=== PATIENT | male | born 1970 | race Caucasian/White ===

== ENCOUNTER 2020-09-07 14:46 | Outpatient (REF) | payer OTHER, SELFPAY | END 2020-09-07 14:47 | disposition home or self-care (01) | LOC: HO.BBR 14:46 | PROVIDERS: PCP Internal Medicine; Visit Provider Internal Medicine Gastroenterology | DX: Z13.89 Encounter for screening for other disorder (principal) ==

== ENCOUNTER 2020-12-14 08:54 | Outpatient (REF) | payer OTHER, SELFPAY | END 2020-12-14 08:55 | disposition home or self-care (01) | LOC: HO.BBR 08:54 | PROVIDERS: PCP Internal Medicine; Visit Provider Internal Medicine Gastroenterology | DX: E83.110 Hereditary hemochromatosis (principal) | CPT/HCPCS: 85018; 99195 ==

== ENCOUNTER 2021-03-22 09:05 | Outpatient (REF) | payer OTHER, SELFPAY | END 2021-03-22 09:06 | disposition home or self-care (01) | LOC: HO.BBR 09:05 | PROVIDERS: PCP Internal Medicine; Visit Provider Internal Medicine Gastroenterology | DX: Z13.89 Encounter for screening for other disorder (principal) ==

== ENCOUNTER 2021-06-29 09:30 | Outpatient (REF) | payer OTHER, SELFPAY | END 2021-06-29 09:31 | disposition home or self-care (01) | LOC: HO.BBR 09:30 | PROVIDERS: PCP Internal Medicine; Visit Provider Internal Medicine Gastroenterology | DX: Z13.89 Encounter for screening for other disorder (principal) ==

== ENCOUNTER 2021-09-28 10:10 | Outpatient (REF) | payer OTHER, SELFPAY ==
[2021-09-28 12:47] LABS: Ferritin 53 ng/mL (20-250)
== END 2021-09-28 10:11 | disposition home or self-care (01) ==
LOC: HO.BBR 10:10
PROVIDERS: Visit Provider Internal Medicine Gastroenterology
DX: E83.10 Disorder of iron metabolism, unspecified (principal)
CPT/HCPCS: 36415; 82728

== ENCOUNTER 2022-01-04 10:01 | Outpatient (REF) | payer OTHER, SELFPAY | END 2022-01-04 10:02 | disposition home or self-care (01) | LOC: HO.BBR 10:01 | PROVIDERS: Visit Provider Internal Medicine Gastroenterology | DX: Z13.89 Encounter for screening for other disorder (principal) ==

== ENCOUNTER 2022-03-29 09:16 | Outpatient (REF) | payer OTHER, SELFPAY ==
[2022-03-29 11:26] LABS: Ferritin 147 ng/mL (20-250)
== END 2022-03-29 09:17 | disposition home or self-care (01) ==
LOC: HO.BBR 09:16
PROVIDERS: Visit Provider Internal Medicine Gastroenterology
DX: E83.110 Hereditary hemochromatosis (principal)
CPT/HCPCS: 36415; 82728

== ENCOUNTER 2022-07-13 10:02 | Outpatient (REF) | payer OTHER, SELFPAY | END 2022-07-13 10:03 | disposition home or self-care (01) | LOC: HO.BBR 10:02 | PROVIDERS: Visit Provider Internal Medicine Gastroenterology | DX: Z13.89 Encounter for screening for other disorder (principal) ==

== ENCOUNTER 2022-10-26 10:05 | Outpatient (REF) | payer OTHER, SELFPAY | END 2022-10-26 10:06 | disposition home or self-care (01) | LOC: HO.BBR 10:05 | PROVIDERS: Visit Provider Internal Medicine Gastroenterology | DX: Z13.89 Encounter for screening for other disorder (principal) ==

== ENCOUNTER 2023-02-08 09:42 | Outpatient (REF) | payer OTHER, SELFPAY | END 2023-02-08 09:43 | disposition home or self-care (01) | LOC: HO.BBR 09:42 | PROVIDERS: PCP Internal Medicine; Visit Provider Internal Medicine Gastroenterology | DX: Z13.89 Encounter for screening for other disorder (principal) ==

== ENCOUNTER 2023-05-10 12:04 | Outpatient (REF) | payer OTHER, SELFPAY | END 2023-05-10 12:05 | disposition home or self-care (01) | LOC: HO.BBR 12:04 | PROVIDERS: Visit Provider Internal Medicine Gastroenterology | DX: Z13.89 Encounter for screening for other disorder (principal) ==

== ENCOUNTER 2023-08-23 10:10 | Outpatient (REF) | payer OTHER, SELFPAY | END 2023-08-23 10:11 | disposition home or self-care (01) | LOC: HO.BBR 10:10 | PROVIDERS: PCP Internal Medicine; Visit Provider Internal Medicine Gastroenterology | DX: Z13.89 Encounter for screening for other disorder (principal) ==

== ENCOUNTER 2023-11-30 09:52 | Outpatient (REF) | payer OTHER, SELFPAY | END 2023-11-30 09:53 | disposition home or self-care (01) | LOC: HO.BBR 09:52 | PROVIDERS: PCP Internal Medicine; Visit Provider Internal Medicine Gastroenterology | DX: Z13.89 Encounter for screening for other disorder (principal) ==

== ENCOUNTER 2024-03-06 10:09 | Outpatient (REF) | payer OTHER, SELFPAY | END 2024-03-06 10:10 | disposition home or self-care (01) | LOC: HO.BBR 10:09 | PROVIDERS: PCP Internal Medicine; Visit Provider Internal Medicine Gastroenterology | DX: Z13.89 Encounter for screening for other disorder (principal) ==

== ENCOUNTER 2024-07-31 10:01 | Outpatient (REF) | payer OTHER, SELFPAY | END 2024-07-31 10:02 | disposition home or self-care (01) | LOC: HO.BBR 10:01 | PROVIDERS: PCP Internal Medicine; Visit Provider Internal Medicine Gastroenterology | DX: Z13.89 Encounter for screening for other disorder (principal) ==

== ENCOUNTER 2024-10-07 11:31 | Emergency (ER) | payer OTHER, SELFPAY ==
--- NOTE | ~2024-10-07 | CT_ITS ---
EXAMINATION: CT CERVICAL SPINE WITHOUT CONTRAST CLINICAL INFORMATION: Status post fall. COMPARISON: None available. TECHNIQUE: Contiguous axial images through the cervical spine using 3 mm collimation with bone and soft tissue algorithm. Sagittal and coronal reformatted images acquired. This CT examination was performed using dose optimization techniques as appropriate, variously including the following: *Automated exposure control *Adjustment of mA and/or kV according to patient size (this includes techniques or standardized protocols for targeted exams where dose is matched to indication/reason for exam; i.e. extremities or head) *Use of iterative reconstruction technique DLP: 521 mGy centimeter. FINDINGS: Marginal osteophyte formation and endplate sclerosis and decreased intervertebral disc height at C5-6. Reverse curvature apex at C5-6. Craniocervical junction is intact. No gross malalignment between the vertebral bodies or the facets. C1 is intact. C2 is intact. C3 is intact. C4 is intact. C5 is intact. C6 is intact. C7 is intact. No gross prevertebral compartment hematoma. Punctate calcifications in the right palatine tonsils. Tympanic cavities and mastoid air cells are aerated. High riding right internal jugular bulb.. CT/CT cervical spine wo IV con IMPRESSION: Cervical spondylosis C5-6 without acute fracture or trauma-related listhesis. If patient's symptoms persist recommend noncontrast MRI cervical spine. Fleischner guidelines were followed. Electronically signed by: Ulysses Purdy MD 10/07/2024 02:38 PM [facility]
--- NOTE | ~2024-10-07 | CT_ITS ---
EXAMINATION: CT HEAD WITHOUT IV CONTRAST HISTORY: fall head strike. TECHNIQUE: Unenhanced helical CT of the head was performed per standard departmental protocol. Coronal and sagittal reformats of the head were also evaluated. One or more of the following techniques was used for dose reduction: Automated exposure control, adjustment of the mA and/or kV according to patient size, use of iterative reconstruction technique. DLP: 713.60 mGy-cm COMPARISON: There are no prior studies for comparison. FINDINGS: BRAIN: The brain parenchyma is unremarkable. There is normal montes/white differentiation. The ventricular system is normal in size and configuration. There is no mass effect or midline shift. No intra- or extra-axial fluid collections are identified. SINUSES: The visualized paranasal sinuses are clear. The mastoid air cells and middle ear cavities are well pneumatized. ORBITS: The visualized orbits are unremarkable. BONES/SOFT TISSUES: The extracranial soft tissues are unremarkable. The calvarium is intact. No suspicious lytic or sclerotic lesions. CT/CT head/brain wo IV con IMPRESSION: Unremarkable unenhanced head CT. Electronically signed by: Bryant Garcia MD 10/07/2024 02:29 PM [facility]
--- NOTE | 2024-10-07 12:36 | ED_ITS ---
HPI - Head Injury General Chief complaint: Head Injury Stated complaint: fall, head inj Time Seen by Provider: 10/07/24 15:09 Source: patient, RN notes reviewed and old records reviewed Mode of arrival: ambulatory History of Present Illness ED Provider: Dalila Gillespie PA-C HPI Narrative: 54-year-old male with no significant past medical history presenting to the ED complaining of headache, & nausea s/p mechanical trip and fall this morning with head strike on ice. Denies LOC or anticoagulation use. Denies vision change or loss, incontinence/retention, abdominal pain, CP/SOB. Denies symptoms prior to fall. Related Data Allergies Allergy/AdvReac Type Severity Reaction Status Date / Time No Known Allergies Allergy Verified 10/07/24 12:38 Review of Systems Review of Systems: Yes all other systems are reviewed and are negative Constitutional: Constitutional: Reports as per HPI Neurologic: Denies Abnormal speech present [facility] Past Medical History Attestation statement: The following information was validated with the patient. Source: old records reviewed Social History Social History Advance Directives: No Advance Directives Information Provided: No Do you have a plan to hurt others: No Plan Physical Exam Vital Signs: Vital Signs: Last Vital Signs Temp 97.3 F 10/07/24 15:14 Pulse 66 10/07/24 15:14 Resp 16 10/07/24 15:14 BP 150/91 H 10/07/24 15:14 Pulse Ox 97 10/07/24 15:14 O2 Del Method Room Air 10/07/24 15:14 BMI result Body Mass Index 28.8 Const: General: cooperative, healthy appearing and no acute distress Orientation/consciousness: patient oriented x3 Limitations: no limitations HEENT: Other: No appreciable hematoma or laceration Head: Yes normal to inspection and Yes atraumatic Ears: hearing grossly normal bilaterally General nose exam: Normal external nose present Face and sinus: Yes normal facial exam Mouth: Normal oral and palatal mucosa present Throat: Yes posterior oropharynx normal, Yes tonsils normal, Yes uvula midline, No peritonsillar mass, No uvula laterally displaced and No uvular edema Eyes: General: appearance normal, both eyes and all related structures Pupils: Equal, round and reactive pupils present EOM: EOMs intact bilaterally Neck: Neck: Yes normal visual inspection and Yes no meningeal signs Resp: Effort & Inspection: normal respiratory effort and no respiratory distress Cardio: Rate: regular rate Heart sounds: S1 normal heart sound present and S2 normal heart sound present GI: Inspection: Yes normal to inspection Palpation (GI): Soft to palpation, nontender, no guarding and not rigid : General: Yes no CVA tenderness Back/Spine/Pelvis: Other: No midline cervical/thoracic/lumbar spinous tenderness/step-off or deformity Back: no CVA tenderness Skin: Rashes: no rashes Wounds: no wounds Neuro: General: patient oriented x3, gait normal, tone normal, moves all extremities, no meningeal signs, no focal motor deficits and CN's II-XI intact bilaterally Cranial nerves: Yes CN's II-XII intact bilaterally, Yes Equal, round and reactive pupils present and Yes Bilaterally intact EOM present Cognition (Neuro): normal cognition Speech: No Abnormal speech present Gait exam (Neuro): Normal gait present Motor exam (neuro): 5/5 motor strength present throughout and no tremor noted Extrem: General: Yes normal to inspection Course Course Course Narrative: This is a Rapid Medical Exam performed in triage by Dalila Gillespie PA-C. Full HPI, ROS and PE to be performed by primary ED provider. 54 yo M presenting to the ED c/o mechanical trip & fall this AM w/+Head strike on ice, denies LOC or AC use. +nausea. Denies visual change/loss PE: ambulating w/steady gait, no focal neuro deficits Plan: Head/ C-spine CT CT cervical spine wo IV con IMPRESSION: Cervical spondylosis C5-6 without acute fracture or trauma-related listhesis. If patient's symptoms persist recommend noncontrast MRI cervical spine. Fleischner guidelines were followed CT head/brain wo IV con IMPRESSION: Unremarkable unenhanced head CT. > blood pressure improved on re-evaluation Results discussed with patient including worrisome signs and symptoms and strict return precautions, and when to return to the emergency department. They verbalized understanding and feel safe for discharge at this time. Medical Decision Making Medical Decision Making MDM Narrative: 54-year-old male with no significant past medical history presenting to the ED complaining of headache, & nausea s/p mechanical trip and fall this morning with head strike on ice. On exam initially hypertensive, NAD, nontoxic appearing, no evidence of trauma or hematoma. No midline spinous tenderness throughout. No focal neuro deficits. Concern for ICH vs fractures vs concussion. Plan: Head/C-spine CT Please refer to course for remaining clinical decision making, interpretation of labs/imaging results, and discussions with consultants and/or family members. Differential Diagnosis Differential Diagnoses: The differential diagnosis associated with the presentation includes As above Admission/Observation Consideration of admission/observation: Escalation of care including admission/observation considered Lab Data MDM Lab Attestation statement: I reviewed the patient's lab results. Independent Interpretation I performed an independent interpretation of an: CT Scan Radiology Impression Discussion of test interpretation with radiology: I have reviewed the radiologist's reading. External Record Review External record reviewed: Inpatient record, Office record, Outpatient record, Prior outpatient labs, Prior outpatient radiology, Primary care record and Outside ED record Tests considered The following testing was considered but not selected: As above Prescription Management I considered prescription management with: Other Chronic Conditions Patient?s care impacted by: Other Social Determinants Patient?s care significantly limited by Social Determinants of Health including: Other Social Determinant of Health Discharge Plan Discharge Clinical Impression: Closed head injury, Acute neck pain, Fall Patient Disposition: Home, Self-Care Instructions: Head Injury (ED), Fall Prevention (ED), Acute Neck Pain (ED) Additional Instructions: Your CT scans were reassuring Please follow concussion precautions, avoid bright lights, excessive screen time. It is normal for you to have some headaches, nausea, lightheadedness however this is persistent or worsening you have profuse/persistent vomiting, vision loss or change, weakness return to the ED immediately Tylenol and Motrin at home Follow-up with your doctor Referrals: Carlos A Rice MD [Primary Care Provider] - 5 days Interventions: ED Discharge Assessment Last Done: 10/07/24 15:14 Discharge Date/Time: 10/07/24 15:27 Print Language: Burundian
[2024-10-07 12:37] VITALS: BP 122/101; PULSE 78; RESP 18; TEMP 36.6; O2SAT 99; BMI 28.8
[2024-10-07 15:11] VITALS: BP 150/91; PULSE 66; RESP 16; O2SAT 97
[2024-10-07 15:14] VITALS: BP 150/91; PULSE 66; RESP 16; TEMP 36.3; O2SAT 97
--- OUTSIDE RECORDS SUMMARY | 2024-10-07 16:51 | XMS_ITS | Encounter Summary ---
Author Organization [facility] Address [phone] [facility] [place] [address] Care Team Providers Care Stock Worker And Deliverer Name Role Phone Carlos A Rice MD Primary Care Provider [phone] Encounter Details Date Type Department Care Team (Latest Contact Info) Description 06/21/2018 Transcribe Orders [facility] Laboratory [address] [place] [address] Corey Quintana MD [address] [place] [id number] [email or web address] Hereditary hemochromatosis (Primary Dx) Social History Tobacco Use Types Packs/Day Years Used Date Smoking Tobacco: Never Assessed Sex and Gender Information Value Date Recorded Sex Assigned at Not on file Gender Identity Not on file Sexual Orientation Not on file documented as of this encounter Plan of Treatment Not on file documented as of this encounter Results * CBC (06/21/2018 11:25 AM EDT) WBC 5.75 3.40 - 11.20 K/uL [facility] RBC 4.89 4.50 - 5.50 M/uL [facility] HGB 16.3 13.0 - 17.0 g/dL [facility] HCT 45.6 40.0 - 51.0 % [facility] PLT 234 130 - 400 K/uL [facility] MCV 93.3 79.0 - 98.0 fL [facility] MCH 33.3 27.0 - 34.8 pg [facility] MCHC 35.7 31.5 - 36.0 g/dL [facility] RDW 11.4 10.8 - 14.6 % [facility] MPV 9.6 9.4 - 12.4 fl [facility] NRBC 0.00 /100 WBCs [facility] ABSOLUTE NRBC 0.00 K/uL [facility] Blood 06/21/2018 11:2 5 AM EDT 06/21/2018 11:28 AM EDT Corey Quintana MD LAB BLOOD ORDERABLES Performing Organization Address [facility] Co de Phone Number [address] [address] * Ferritin (06/21/2018 11:25 AM EDT) FERRITIN 121 30 - 400 ug/L [facility] Blood 06/21/2018 11:2 5 AM EDT 06/21/2018 11:28 AM EDT Corey Quintana MD LAB BLOOD ORDERABLES Performing Organization Address [facility] de Phone Number [address] [address] * (ABNORMAL) LFTs (hepatic panel) (06/21/2018 11:25 AM EDT) ALKALINE PHOSPHATASE 132(H) 39 - 117 U/L [facility] TOTAL BILIRUBIN 0.3 0.0 - 1.2 mg/dL [facility] DIRECT BILIRUBIN <0.2 0 - 0.3 mg/dL [facility] Bilirubin (Indirect) NOT CALCULATED 0 - 1.5 mg/dL [facility] AST 25 0 - 37 U/L [facility] ALT 29 0 - 40 U/L [facility] TOTAL PROTEIN 7.1 6.5 - 8.0 g/dL [facility] ALBUMIN 4.6 3.9 - 4.8 g/dL [facility] GLOBULIN 2.5 1 - 4.8 g/dL [facility] A/G Ratio 1.84 1.00 - 4.80 RATIO [facility] Blood 06/21/2018 11:2 5 AM EDT 06/21/2018 11:28 AM EDT Corey Quintana MD LAB BLOOD ORDERABLES [address] [address] documented in this encounter Visit Diagnoses Diagnosis Hereditary hemochromatosis- Primary documented in this encounter Care Teams Stock Worker And Deliverer Relationship Specialty Start Date End Date Carlos A Rice MD PCP - General Internal Medicine 06/21/18 documented as of this encounter Additional Source Comments The information contained in this document represents components of the legal health record. It is not the complete legal health record.[facility]
--- OUTSIDE RECORDS SUMMARY | 2024-10-07 16:51 | XMS_ITS | Clinical Summary ---
Author Organization [facility] Address [phone] [facility] [employer] [place] [address] Care Team Providers Care Documentation Coordinator Name Role Phone Dany Rondon MD Primary Care Provider [phone] Allergies No known active allergies Medications Medication Sig Dispensed Refills Start Date End Date Status lisinopril (PRINIVIL,ZESTRIL) 5 MG tablet Take 5 mg by mouth daily. Active omega 7-ajk-muk-fish oil 1,000 mg (120 mg-180 mg) Cap Take 1 capsule by mouth daily. Active Medication-Free Text Tumeric/cucumin Active Encounters Date Type Department Care Team Description 09/24/2024 9:47 AM EST - 09/24/2024 11:59 PM EST Hospital Encounter [facility] Laboratory [address] [address] Myesha Gomez PA Discharge Disposition: Home or Self Care 09/24/2024 Transcribe Orders [facility] Laboratory [address] [address] Myesha Gomez PA 09/24/2024 Transcribe Orders [facility] Laboratory [address] [address] Myesha Gomez PA Hereditary hemochromatosis (Primary Dx) from Last 3 Months Social History Tobacco Use Types Packs/Day Years Used Date Smoking Tobacco: Never Smokeless Tobacco: Never Alcohol Use Standard Drinks/Week Comments Never 0 (1 standard drink = 0.6 oz pur e alcohol) Education Answer Date Recorded Are you interested in more education? Not on jabari e 12/30/2022 Are you concerned about learning? Not on file 12/30/2022 No 12/30/2022 No 12/30/2022 Digital Access Answer Date Recorded No 01/28/2023 No 01/28/2023 No 01/28/2023 Reliable internet access at home? Not on file 01/28/2023 Device with a working camera? Not on file Sex and Gender Information Value Date Recorded Sex Assigned at Not on file Gender Identity Not on file Sexual Orientation Not on file Last Filed Vital Signs Vital Sign Reading Time Taken Comments Blood Pressure 133/94 05/25/2020 1:30 PM EDT Pulse 62 05/25/2020 12:04 PM EDT Temperature 36.3 ??C (97.3 ??F) 05/25/2020 12:04 PM E DT Respiratory Rate 12 05/25/2020 12:04 PM EDT Oxygen Saturation 98% 05/25/2020 1:30 PM EDT Inhaled Oxygen Concentration - - Weight 88.5 kg (195 lb) 05/25/2020 12:04 PM EDT Height - - Body Mass Index - - Plan of Treatment Health Maintenance Due Date Last Done Comments Adult Td,Tdap Booster 1970 LIPID PANEL 1970 DEPRESSION SCREENING 1982 HEPATITIS B SCREENING 01/30/1988 HIV ONE-TIME SCREENING (18-6 5 YEARS) 01/30/1988 HEPATITIS B VACCINES (1 of 3 - 19+ 3-dose series) 1989 COLOGUARD 2015 FIT TEST 2015 FOBT 2015 SIGMOIDOSCOPY 2015 VIRTUAL COLONOSCOPY 2015 PNEUMOCOCCAL VACCINES (50+ years) (1 of 1 - PCV) 01/30/2020 ZOSTER VACCINES (1 of 2) 01/30/2020 INFLUENZA VACCINE (#1) 2024 9, 06/07/2017 COVID-19 VACCINE (1 - 2023-2 5 season) 2024 CREATININE LEVEL 09/24/2025 09/24/2024 POTASSIUM LEVEL 09/24/2025 09/24/2024 COLONOSCOPY 05/25/2030 05/25/2020 COLORECTAL CANCER SCREENING 05/25/2030 SMOKING STATUS SCREENING (On ce After 26 Yrs) Completed 05/25/2020 HEPATITIS C SCREENING Completed 09/24/2024 HEPATITIS A VACCINES Aged Out No long er eligible based on patient's age to complete this topic HIB VACCINES Aged Out No longer eligi ble based on patient's age to complete this topic MENINGOCOCCAL VACCINES (ACWY) Aged Out No longer eligible based on patient's age to complete this topic Medical Devices Not on file Procedures Procedure Name Priority Date/Time Associated Diagnosis Comments COMPREHENSIVE METABOLIC PANEL Routine 09/24/2024 9:47 AM EST Hereditary hemochromatosis LIVER FIBROSIS TEST Routine 09/24/2024 9 :47 AM EST Hereditary hemochromatosis FERRITIN Routine 09/24/2024 9:47 AM EST Hereditary hemochromatosis ENDOSCOPY, COLON 05/25/2020 12:5 2 PM EDT from Last 3 Months or Most Recently Relevant to Health Maintenance Results * Liver fibrosis test (09/24/2024 9:47 AM EST) Fibrosis score 0.18 [facility] Interpretation (Fibrosis) SEE NOTE [facility] Comment: (NOTE) no fibrosis Fibro Test Score (f) ??Metavir Score f>=0 and f<=0.21 : F0 (no fibrosis) f>0.21 and f<=0.27 : F0-F1 (no fibrosis) f>0.27 and f<=0.31 : F1 (minimal fibrosis) f>0.31 and f<=0.48 : F1-F2 (minimal fibrosis) f>0.48 and f<=0.58 : F2 (moderate fibrosis) f>0.58 and f<=0.72 : F3 (advanced fibrosis) f>0.72 and f<=0.74 : F3-F4 (advanced fibrosis) f>0.74 and f<=1.00 : F4 (severe fibrosis) HCV Fibrosis Grade F0 Q [facility] NECROINFLAMM SCORE 0.06 Q [facility] NECROINFLAMM GRADE A0 Q [facility] NECROINFLAMM INTERP SEE NOTE [facility] Comment: (NOTE) no activity ActiTest Score (a) ?Metavir Score a>=0 and a<=0.17 : A0 (no activity) a>0.17 and a<=0.29 : A0-A1 (no activity) a>0.29 and a<=0.36 : A1 (minimal activity) a>0.36 and a<=0.52 : A1-A2 (minimal activity) a>0.52 and a<=0.60 : A2 (significant activity) a>0.60 and a<=0.62 : A2-A3 (significant activity) a>0.62 and a<=1.00 : A3 (severe activity) A2 Macroglobulin 187 106 - 279 mg/dL [facility] Haptoglobin 99 43 - 212 mg/dL [facility] Apolipoprotein A1 157 94 - 176 mg/dL [facility] TOTAL BILIRUBIN 0.4 0.2 - 1.2 mg/dL [facility]/ [facility] GGT 24 3 - 95 U/L [facility] ALT 18 9 - 46 U/L [facility] Specimen/Product ID [id number] [facility] Comments (Chemistry) SEE NOTE [facility]/ [facility] Comment: (NOTE) The reliability of results is dependent on compliance with the preanalytical and analytical conditions recommended by [employer]. The tests have to be deferred for: acute hemolysis, acute hepatitis, acute inflammation, extra hepatic cholestasis. The advice of a specialist should be sought for interpretation in chronic hemolysis and Gilbert's syndrome. The test interpretation is not validated in liver transplant patients. Isolated extreme values of one of the components should lead to caution in interpreting the results. In case of discordance between a biopsy result and a test, it is recommended to seek the advice of a specialist. The causes of these discordances could be due to a flaw of the test or to a flaw in the biopsy: i.e. a liver biopsy has a 33% variability rate for one fibrosis stage. FibroTest is interpretable for chronic hepatitis B and C, alcoholic and non alcoholic steatosis. ActiTest is interpretable for chronic hepatitis B and C. The performance characteristics have been determined by [facility]. It has not been cleared or approved by the U.S. Food and Drug Administration. Performance characteristics refer to the analytical performance of the test. [employer], the associated logo, [employer] and all associated [employer] rivers are the registered trademarks of [employer]. All third libertarian rivers - (R) and (TM) - are the property of their respective owners. (C) [id number] [employer]. All rights reserved. Blood 09/24/2024 9:47 AM EST 09/24/2024 9:51 AM EST Myesha IRAHETA LAB BLOOD ORDERABLE S MAGALIS STROUD/[employer] [facility] [address] [place] [address], [facility] [phone] * (ABNORMAL) Comprehensive metabolic panel (09/24/2024 9:47 AM EST) SODIUM 138 133 - 146 mmol/L [facility] POTASSIUM 4.5 3.3 - 5.1 mmol/L [facility] CHLORIDE 102 96 - 108 mmol/L [facility] CO2 24 21 - 35 mmol/L [facility] BUN 21(H) 6 - 19 mg/dL [facility] CREATININE 0.90 0.5 - 1.5 mg/dL [facility] GLUCOSE 124(H) 70 - 99 mg/dL [facility] ALBUMIN 4.3 3.9 - 4.8 g/dL [facility] TOTAL PROTEIN 7.4 6.5 - 8.0 g/dL [facility] CALCIUM 9.6 8.4 - 10.3 mg/dL [facility] ALKALINE PHOSPHATASE 151(H) 39 - 117 U/L [facility] TOTAL BILIRUBIN <0.2 0.0 - 1.2 mg/dL [facility] AST 25 0 - 37 U/L [facility] ALT 21 0 - 40 U/L [facility] GLOBULIN 3.1 1 - 4.8 g/dL [facility] EGFR 101 >59 mL/min/1.7 3m2 [facility] Comment:Estimated glomerular filtration rate calculated using the CKD-EPI refit equation. ANION GAP 17 10 - 20 mmol/L [facility] Blood 09/24/2024 9:47 AM EST 09/24/2024 9:52 AM EST Myesha Palma [facility] LAB BLOOD ORDERABLE S [address] [address] * Ferritin (09/24/2024 9:47 AM EST) FERRITIN 128 30 - 400 ug/L [facility] Blood 09/24/2024 9:47 AM EST 09/24/2024 9:52 AM EST Myesha Waldrop Patricia [place] LAB BLOOD ORDERABLE S Performing Organization Address City/[facility] Co de Phone Number [address] [address] * ENDOSCOPY, COLON (05/25/2020 12:52 PM EDT) Narrative Transcriptions Ren Cagle MD - 05/25/2020 12:52 PM EDT Patient Name: Hugo Phipps Attending MD:: REN CAGLE MD Procedure Date: 05/25/2020 12:52 PM Date of : 1970 Age: 50 Admit Type: Outpatient Gender: Male Room: [place] [address] Referring MD: DANY RONDON Exam Type: Colonoscopy Indications: Screening for colorectal malignant neoplasm, This is the patient's first colonoscopy Medications: Monitored Anesthesia Care Procedure: Informed consent was obtained from the patient after discussion of the indications, limitations, alternatives, benefits, and risks of the procedure. Risks specifically discussed include but are not limited to medication reactions, missed lesions, bleeding, perforation, or the need for emergentsurgery. Throughout the procedure, the patient's bloodpressure, pulse, end-tidal CO2, and oxygen saturations were monitored continuously. The [employer]us pediatric variable [id number] #2 was introduced through the anus and advanced tothe cecum, identified by appendiceal orifice andileocecal valve. The colonoscopy was performed without difficulty. The patient tolerated the procedurewell. The quality of the bowel preparation was good. Complications: No immediate complications. Estimated blood loss: Minimal. Findings: The perianal and digital rectal examinations were normal. Pertinent negatives include normal sphincter tone. A few small-mouthed diverticula were found in the descending colon. Retroflexion in the right colon was performed. The terminal ileum appeared normal. The exam was otherwise without abnormality on direct and retroflexion views. Impression: - Diverticulosis in the descending colon. - The examined portion of the ileum was normal. - The examination was otherwise normal on direct and retroflexion views. - No specimens collected. Recommendation: - Repeat colonoscopy in 10 years for screeningpurposes. - Continue present medications. REN CAGLE MD 05/25/2020 1:14:22 PM This report has been signed electronically. Number of Addenda: 0 Note Initiated On: 05/25/2020 12:52 PM Procedure Code(s): --- Professional --- 46625, Colonoscopy, flexible; diagnostic, including collection of specimen(s) by brushing or washing, when performed (separateprocedure) --- Technical --- 14370, Colonoscopy, flexible; diagnostic, including collection of specimen(s) by brushing or washing, when performed (separateprocedure) Diagnosis Code(s): --- Professional --- Z12.11, Encounter for screening for malignantneoplasm of colon --- Technical --- Z12.11, Encounter for screening for malignantneoplasm of colon CPT copyright 2018 [employer]. All rights reserved. The codes documented in this report are preliminary and upon bottle sorter reviewmay be revised to meet current compliance requirements. Procedure Date: 05/25/2020 12:52:49 PM [address] [place] [address] Dany Rondon MD GI PROCEDURE MUSA CORNELIUS from Last 3 Months or Most Recently Relevant to Health Maintenance Care Teams Documentation Coordinator Relationship Specialty Start Date End Date Dany Rondon MD PCP - General Internal Medicine 06/21/18 Additional Source Comments The information contained in this document represents components of the legal health record. It is not the complete legal health record.[facility]
--- OUTSIDE RECORDS SUMMARY | 2024-10-07 16:52 | XMS_ITS | Encounter Summary ---
Author Organization [facility] Address [phone] Formerly [facility], [facility] [place] [address] Care Team Providers Care Workers Compensation Claims Supervisor Name Role Phone Carlos A Rice MD Primary Care Provider [phone] [phone] Encounter Details Date Type Department Care Team (Latest Contact Info) Description 09/24/2024 Transcribe Orders [facility] Laboratory [address] [address] Myesha Gomez PA [address] [place] [address] Hereditary hemochromatosis (Primary Dx) Social History Tobacco [...] documented as of this encounter Results * Ferritin (09/24/2024 9:47 AM EST) FERRITIN 128 30 - 400 ug/L [facility] Blood 09/24/2024 9:47 AM EST 09/24/2024 9:52 AM EST Myesha IRAHETA LAB BLOOD ORDERABLE S [facility] [address] [place] [address] * Liver fibrosis test (09/24/2024 9:47 AM EST) Fibrosis score 0.18 [facility] Interpretation (Fibrosis) SEE NOTE [facility] Comment: (NOTE) no fibrosis Fibro Test Score [...] HCV Fibrosis Grade F0 Q [facility] NECROINFLAMM SCORE 0.06 Q [facility] NECROINFLAMM GRADE A0 Q [facility] NECROINFLAMM INTERP SEE NOTE [facility]/ [facility] Comment: (NOTE) no activity ActiTest Score (a) [...] A2 Macroglobulin 187 106 - 279 mg/dL [facility] [employer] [facility] Haptoglobin 99 43 - 212 mg/dL [facility] [employer] [facility] Apolipoprotein A1 157 94 - 176 mg/dL [facility] TOTAL BILIRUBIN 0.4 0.2 - 1.2 mg/dL [facility] GGT 24 3 - 95 U/L [facility] ALT 18 9 - 46 U/L [facility] [employer] [facility] Specimen/Product ID [id number] [facility] [employer] [facility] Comments (Chemistry) SEE NOTE [facility] [employer] [facility] Comment: (NOTE) The reliability of results is dependent on compliance with the preanalytical and analytical conditions recommended by [employer]. The tests have to be deferred for: [...] The performance characteristics have been determined by [facility]. It has not been cleared or approved by the U.S. Food and Drug Administration. Performance characteristics refer to the analytical performance of the test. [employer], the associated logo, [employer] and all associated Kann[employer] rivers are the registered trademarks of [employer]. All third democrat rivers - (R) and (TM) - are the property of their respective owners. (C) [id number] [employer]. All rights reserved. Blood 09/24/2024 9:47 AM EST 09/24/2024 9:51 AM EST Myesha IRAHETA LAB BLOOD ORDERABLE S [facility] [id number] [place] [address], [facility] [phone] * (ABNORMAL) Comprehensive metabolic panel (09/24/2024 9:47 AM EST) SODIUM 138 133 - 146 mmol/L [facility] POTASSIUM 4.5 3.3 - 5.1 mmol/L [facility] CHLORIDE 102 96 - 108 mmol/L [facility] CO2 24 21 - 35 mmol/L [facility] BUN 21(H) 6 - 19 mg/dL [facility] CREATININE 0.90 0.5 - 1.5 mg/dL [facility] GLUCOSE 124(H) 70 - 99 mg/dL [facility] ALBUMIN 4.3 3.9 - 4.8 g/dL [facility] TOTAL PROTEIN 7.4 6.5 - 8.0 g/dL [facility] CALCIUM 9.6 8.4 - 10.3 mg/dL [facility] ALKALINE PHOSPHATASE 151(H) 39 - 117 U/L [facility] TOTAL BILIRUBIN <0.2 0.0 - 1.2 mg/dL [facility] AST 25 0 - 37 U/L [facility] ALT 21 0 - 40 U/L [facility] GLOBULIN 3.1 1 - 4.8 g/dL [facility] EGFR 101 >59 mL/min/1.7 3m2 [facility] Comment:Estimated glomerular filtration rate calculated using the CKD-EPI refit equation. ANION GAP 17 10 - 20 mmol/L [facility] Blood 09/24/2024 9:47 AM EST 09/24/2024 9:52 AM EST Myesha IRAHETA LAB BLOOD ORDERABLE S [address] [address] documented in this encounter Visit Diagnoses Diagnosis Hereditary hemochromatosis- Primary documented in this encounter Care Teams Workers Compensation Claims Supervisor Relationship Specialty Start Date End Date Carlos A Rice MD PCP - General Internal Medicine 06/21/18 documented as of this encounter Additional Source Comments The information contained in this document represents components of the legal health record. It is not the complete legal health record.[facility]
--- OUTSIDE RECORDS SUMMARY | 2024-10-07 16:52 | XMS_ITS | Encounter Summary ---
Author Organization [facility] Address [phone] [facility] [place] [address] Care Team Providers Care Sealer Operator Name Role Phone Carlos A Rice MD Primary Care Provider [phone] [phone] Encounter Details Date Type Department Care Team ([facility] Contact Info) Description 09/24/2024 Transcribe Orders [facility] Laboratory [address] [phone] Myesha Gomez PA 10 [place] [address] Social History Tobacco Use Types Packs/Day Years [...] on file documented as of this encounter Visit Diagnoses Not on filedocumented in this encounter Care Teams Sealer Operator Relationship Specialty Start Date End Date Carlos A Rice MD [phone] (work) PCP - General Internal Medicine 06/21/18 documented as of this encounter Additional Source Comments The information contained in this document represents components of the legal health record. It is not the complete legal health record.[facility]
--- OUTSIDE RECORDS SUMMARY | 2024-10-07 16:52 | XMS_ITS | Encounter Summary ---
Author Organization [facility] Address [phone] [facility] [employer] [place] [address] Care Team Providers Care Doctor Of Chiropractic Name Role Phone Carlos A Rice MD Primary Care Provider [phone] Encounter Details Date Type Department Care Team (Latest Contact Info) Description 09/24/2024 9:47 AM EST - 09/24/2024 11:59 PM EST Hospital Encounter [facility] Laboratory [address] [address] Myesha Gomez PA 10 [place] [address] Discharge Disposition: Home or Self Care Social History Tobacco Use Types Packs/Day Years [...] on file documented as of this encounter Medications at Time of Discharge Medication Sig Dispensed Refills Start Date End Date lisinopril (PRINIVIL,ZESTRIL) 5 MG tablet Take 5 mg by mouth daily. Medication-Free Text Tumeric/cucumin omega 4-opi-fyg-fish oil 1,000 mg (120 mg-180 mg) Cap Take 1 capsule by mouth daily. documented as of this encounter Plan of Treatment Not on file documented as of this encounter Procedures Procedure Name Priority Date/Time Associated Diagnosis Comments LIVER FIBROSIS TEST Routine 09/24/2024 9 :47 AM EST Hereditary hemochromatosis COMPREHENSIVE METABOLIC PANEL Routine 09/24/2024 9:47 AM EST Hereditary hemochromatosis FERRITIN Routine 09/24/2024 9:47 AM EST Hereditary hemochromatosis documented in this encounter Results * (ABNORMAL) Comprehensive metabolic panel (09/24/2024 9:47 AM EST) SODIUM 138 133 - 146 mmol/L [facility] POTASSIUM 4.5 3.3 - 5.1 mmol/L [facility] CHLORIDE 102 96 - 108 mmol/L [facility] CO2 24 21 - 35 mmol/L [facility] BUN 21(H) 6 - 19 mg/dL [facility] CREATININE 0.90 0.5 - 1.5 mg/dL [facility] GLUCOSE 124(H) 70 - 99 mg/dL [facility] ALBUMIN 4.3 3.9 - 4.8 g/dL [facility] TOTAL PROTEIN 7.4 6.5 - 8.0 g/dL [facility] CALCIUM 9.6 8.4 - 10.3 mg/dL [facility] ALKALINE PHOSPHATASE 151(H) 39 - 117 U/L [facility] TOTAL BILIRUBIN <0.2 0.0 - 1.2 mg/dL [facility] AST 25 0 - 37 U/L [facility] ALT 21 0 - 40 U/L [facility] GLOBULIN 3.1 1 - 4.8 g/dL [facility] EGFR 101 >59 mL/min/1.7 3m2 [facility] Comment:Estimated glomerular filtration rate calculated using the CKD-EPI refit equation. ANION GAP 17 10 - 20 mmol/L [facility] Blood 09/24/2024 9:47 AM EST 09/24/2024 9:52 AM EST Myesha IRAHETA LAB BLOOD ORDERABLE S [address] [address] * Liver fibrosis test (09/24/2024 9:47 AM EST) Fibrosis score 0.18 [facility] Interpretation (Fibrosis) SEE NOTE [facility] Comment: (NOTE) no fibrosis Fibro Test [...] HCV Fibrosis Grade F0 Q [facility] NECROINFLAMM SCORE 0.06 Q [facility] NECROINFLAMM GRADE A0 Q [facility] NECROINFLAMM INTERP SEE NOTE [facility]/ [facility] Comment: (NOTE) no activity ActiTest Score (a) [...] A2 Macroglobulin 187 106 - 279 mg/dL [facility] Haptoglobin 99 43 - 212 mg/dL [email or web address] Apolipoprotein A1 157 94 - 176 mg/dL [facility] TOTAL BILIRUBIN 0.4 0.2 - 1.2 mg/dL [facility] GGT 24 3 - 95 U/L [facility] ALT 18 9 - 46 U/L [facility] Specimen/Product ID [id number] [facility] Comments (Chemistry) SEE NOTE [facility] Comment: (NOTE) The reliability of results is dependent on compliance with the preanalytical and analytical conditions recommended by [employer]. The tests have to be deferred for: [...] The performance characteristics have been determined by [facility]. It has not been cleared or approved by the U.S. Food and Drug Administration. Performance characteristics refer to the analytical performance of the test. [employer], [employer], the associated logo, [employer] and all associated Qiandao rivers are the registered trademarks of [employer]. All third democrat rivers - (R) and (TM) - are the property of their respective owners. (C) [id number] [employer]. All rights reserved. Blood 09/24/2024 9:47 AM EST 09/24/2024 9:51 AM EST Myesha IRAHETA LAB BLOOD ORDERABLE S [facility] [facility] [address] [place] [address], [facility] [phone] * Ferritin (09/24/2024 9:47 AM EST) FERRITIN 128 30 - 400 ug/L [facility] Blood 09/24/2024 9:47 AM EST 09/24/2024 9:52 AM EST Myesha IRAHETA LAB BLOOD ORDERABLE S [facility] [address] [place] [address] documented in this encounter Visit Diagnoses Diagnosis Hereditary hemochromatosis documented in this encounter Care Teams Doctor Of Chiropractic Relationship Specialty Start Date End Date Carlos A Rice MD PCP - General Internal Medicine 06/21/18 documented as of this encounter Additional Source Comments The information contained in this document represents components of the legal health record. It is not the complete legal health record.[facility]
--- OUTSIDE RECORDS SUMMARY | 2024-10-07 16:52 | XMS_ITS | Encounter Summary ---
Author Organization [facility] Address [phone] [place] [address] Care Team Providers Care Inkjet Operator Name Role Phone Carlos A Rice MD Primary Care Provider [phone] Encounter Details Date Type Department Care Team (Late st Contact Info) Description 05/25/2020 Procedure Pass [facility] Endoscopy Admitting Dept Virtual Department [address] [place] [address] Social History Tobacco Use Types Packs/Day Years Used Date Smoking Tobacco: Never Smokeless Tobacco: Never Alcohol Use Standard Drinks/Week Comments Never 0 (1 standard drink = 0.6 oz pur e alcohol) Sex and Gender Information Value Date Recorded Sex Assigned at Not on file Gender Identity Not on file Sexual Orientation Not on file documented as of this encounter Plan of Treatment Not on file documented as of this encounter Visit Diagnoses Not on filedocumented in this encounter Care Teams Inkjet Operator Relationship Specialty Start Date End Date Carlos A Rice MD PCP - General Internal Medicine 06/21/18 documented as of this encounter Additional Source Comments The information contained in this document represents components of the legal health record. It is not the complete legal health record.[facility]
--- OUTSIDE RECORDS SUMMARY | 2024-10-07 16:52 | XMS_ITS | Encounter Summary ---
Author Organization [facility] Address [phone] [facility] [place] [address] Care Team Providers Care Surveyor Mine Name Role Phone Carlos A Rice MD Primary Care Provider [phone] Encounter Details Date Type Department Care Team (Latest Contact Info) Description 05/28/2019 Transcribe Orders [facility] Laboratory [address] [place] [id number] Corey Quintana MD [address] [place] [email or web address] Familial hemochromatosis (Primary Dx) Social History Tobacco Use Types Packs/Day Years Used Date Smoking Tobacco: Never Assessed Sex and Gender Information Value Date Recorded Sex Assigned at Not on file Gender Identity Not on file Sexual Orientation Not on file documented as of this encounter Plan of Treatment Not on file documented as of this encounter Results * Ferritin (05/28/2019 10:41 AM EDT) FERRITIN 89 30 - 400 ug/L [facility] Blood 05/28/2019 10:4 1 AM EDT 05/28/2019 10:54 AM EDT Corey Quintana MD LAB BLOOD ORDERABLES [facility] [address] [place] [address] * LFTs (hepatic panel) (05/28/2019 10:41 AM EDT) ALKALINE PHOSPHATASE 105 39 - 117 U/L [facility] TOTAL BILIRUBIN 0.3 0.0 - 1.2 mg/dL [facility] DIRECT BILIRUBIN <0.2 0 - 0.3 mg/dL [facility] Bilirubin (Indirect) NOT CALCULATED 0 - 1.5 mg/dL [facility] AST 24 0 - 37 U/L [facility] ALT 28 0 - 40 U/L [facility] TOTAL PROTEIN 7.0 6.5 - 8.0 g/dL [facility] ALBUMIN 4.4 3.9 - 4.8 g/dL [facility] GLOBULIN 2.6 1 - 4.8 g/dL [facility] A/G Ratio 1.69 1.00 - 4.80 RATIO [facility] Blood 05/28/2019 10:4 1 AM EDT 05/28/2019 10:54 AM EDT Corey Quintana MD LAB BLOOD ORDERABLES Performing Organization Address City/State/[facility] Co de Phone Number [address] [address] * (ABNORMAL) CBC (05/28/2019 10:41 AM EDT) WBC 6.54 3.40 - 11.20 K/uL [facility] RBC 4.48(L) 4.50 - 5.50 M/uL [facility] HGB 14.7 13.0 - 17.0 g/dL [facility] HCT 42.0 40.0 - 51.0 % [facility] PLT 280 130 - 400 K/uL [facility] MCV 93.8 79.0 - 98.0 [facility] MCH 32.8 27.0 - 34.8 pg [facility] MCHC 35.0 31.5 - 36.0 g/dL [facility] RDW 11.4 10.8 - 14.6 % [facility] MPV 9.6 9.4 - 12.4 [facility] NRBC 0.00 0.00 /100 WBCs [facility] ABSOLUTE NRBC 0.00 0.00 K/uL [facility] Blood 05/28/2019 10:4 1 AM EDT 05/28/2019 10:54 AM EDT Corey Quintana MD LAB BLOOD ORDERABLES [address] [address] documented in this encounter Visit Diagnoses Diagnosis Familial hemochromatosis- Primary Disorders of iron metabolism documented in this encounter Care Teams Surveyor Mine Relationship Specialty Start Date End Date Carlos A Rice MD PCP - General Internal Medicine 06/21/18 documented as of this encounter Additional Source Comments The information contained in this document represents components of the legal health record. It is not the complete legal health record.[facility]
== END 2024-10-07 15:27 | disposition home or self-care (01) ==
PROVIDERS: Emergency Provider Emergency Medicine; PCP Internal Medicine
DX: S09.90XA Unspecified injury of head, initial encounter (principal); R11.0 Nausea; M54.2 Cervicalgia; R51.9 Headache, unspecified; W00.0XXA Fall on same level due to ice and snow, initial encounter; Y93.9 Activity, unspecified; Y92.89 Other specified places as the place of occurrence of the external cause; Y99.8 Other external cause status
CPT/HCPCS: 70450; 72125; 99282; 99284

== ENCOUNTER → 2024-10-07 12:37 | Outpatient (BNV) | payer OTHER, SELFPAY | PROVIDERS: PCP Internal Medicine; Visit Provider Radiology Diagnostic Radiology | DX: M47.812 Spondylosis without myelopathy or radiculopathy, cervical region (principal); S09.90XA Unspecified injury of head, initial encounter; W19.XXXA Unspecified fall, initial encounter | CPT/HCPCS: 70450; 72125 ==

== ENCOUNTER 2024-11-07 09:55 | Outpatient (REF) | payer OTHER, SELFPAY ==
--- OUTSIDE RECORDS SUMMARY | 2024-11-07 11:29 | XMS_ITS | Encounter Summary ---
Author Organization [facility] Address [address] [place] [address] [place] [phone] Phone Care Team Providers Care Treasury Accountant Name Role Phone Carlos A Rice MD Primary Care Provider [phone] Encounter Details Date Type Department Care Team (Latest Contact Info) Description 10/11/2024 10:16 AM EST - 10/11/2024 11:59 PM [facility] Hospital Encounter [facility] [address] [place] [address] Myesha Gomez PA [address] [place] [address] Discharge Disposition: Home or Self Care Social [...] by mouth daily. Medication-Free Text Tumeric/cucumin omega 2-icb-rth-fish oil 1,000 mg (120 mg-180 mg) Cap Take 1 capsule by mouth daily. documented as of this encounter Plan of Treatment Not on file documented as of this encounter Procedures Procedure Name Priority Date/Time Associated Diagnosis Comments LIVER FIBROSIS TEST Routine 10/11/2024 1 0:43 AM EST Screening for unspecified condition COMPREHENSIVE METABOLIC PANEL Routine 10/11/2024 10:43 AM EST Screening for unspecified condition FERRITIN Routine 10/11/2024 10:43 AM EST Screening for unspecified condition documented in this encounter Results * (ABNORMAL) Comprehensive metabolic panel (10/11/2024 10:43 AM EST) SODIUM 137 133 - 146 mmol/L [facility] POTASSIUM 4.5 3.3 - 5.1 mmol/L [facility] CHLORIDE 102 96 - 108 mmol/L [facility] CO2 23 21 - 35 mmol/L [facility] BUN 21(H) 6 - 19 mg/dL [facility] CREATININE 1.00 0.5 - 1.5 mg/dL [facility] GLUCOSE 114(H) 70 - 99 mg/dL [facility] ALBUMIN 4.4 3.9 - 4.8 g/dL [facility] TOTAL PROTEIN 7.7 6.5 - 8.0 g/dL [facility] CALCIUM 9.9 8.4 - 10.3 mg/dL [facility] ALKALINE PHOSPHATASE 135(H) 39 - 117 U/L [facility] TOTAL BILIRUBIN 0.4 0.0 - 1.2 mg/dL [facility] AST 18 0 - 37 U/L [facility] ALT 19 0 - 40 U/L [facility] GLOBULIN 3.3 1 - 4.8 g/dL [facility] EGFR 89 >59 mL/min/1.7 3m2 [facility] Comment:Estimated glomerular filtration rate calculated using the CKD-EPI refit equation. ANION GAP 17 10 - 20 mmol/L [facility] Blood 10/11/2024 10:4 3 AM EST 10/11/2024 10:47 AM EST [facility] BLO[facility] ORDERABLE S [address] [address] * Liver fibrosis test (10/11/2024 10:43 AM EST) Fibrosis score 0.31 [facility] Interpretation (Fibrosis) SEE NOTE [facility] Comment: (NOTE) minimal fibrosis Fibro Test Score (f) ??Metavir Score [...] : F4 (severe fibrosis) HCV Fibrosis Grade F1 Q [facility] NECROINFLAMM SCORE 0.07 Q [facility] NECROINFLAMM GRADE A0 Q [facility] NECROINFLAMM INTERP SEE NOTE [facility] Comment: (NOTE) no activity ActiTest Score (a) ?Metavir Score a>=0 and a<=0.17 : A0 (no activity) a>0.17 and a<=0.29 : A0-A1 (no activity) a>0.29 and a<=0.36 : A1 (minimal activity) a>0.36 and a<=0.52 : A1-A2 (minimal activity) a>0.52 and a<=0.60 : A2 (significant activity) a>0.60 and a<=0.62 : A2-A3 (significant activity) a>0.62 and a<=1.00 : A3 (severe activity) A2 Macroglobulin 211 106 - 279 mg/dL [facility] Haptoglobin 95 43 - 212 mg/dL [facility] Apolipoprotein A1 147 94 - 176 mg/dL [facility] TOTAL BILIRUBIN 0.6 0.2 - 1.2 mg/dL [facility] GGT 24 3 - 95 U/L [facility] ALT 18 9 - 46 U/L [facility] Specimen/Product ID [id number] [facility] Comments (Chemistry) SEE NOTE [facility] Comment: (NOTE) The reliability of results is dependent on compliance with the preanalytical and analytical conditions recommended by [employer]. The tests have to be deferred for: [...] The performance characteristics have been determined by [facility]. It has not been cleared or approved by the U.S. Food and Drug Administration. Performance characteristics refer to the analytical performance of the test. [employer], the associated logo, [employer] and all associated [employer] rivers are the registered trademarks of [employer]. All third republican rivers - (R) and (TM) - are the property of their respective owners. (C) [id number] [employer]. All rights reserved. Blood 10/11/2024 10:4 3 AM EST 10/11/2024 10:47 AM EST [facility] ORDERABLE S [facility] [id number] [place] [address], [facility] [phone] * Ferritin (10/11/2024 10:43 AM EST) FERRITIN 120 30 - 400 ug/L [facility] Blood 10/11/2024 10:4 3 AM EST 10/11/2024 10:47 AM EST [facility] ORDERABLE S [address] [address] documented in this encounter Visit Diagnoses Diagnosis Screening for unspecified condition documented in this encounter Care Teams Treasury Accountant Relationship Specialty Start Date End Date Carlos A Rice MD PCP - General Internal Medicine 06/21/18 documented as of this encounter Additional Source Comments The information contained in this document represents components of the legal health record. It is not the complete legal health record.[facility]
--- OUTSIDE RECORDS SUMMARY | 2024-11-07 11:29 | XMS_ITS ---
Author Organization [facility] Address [address] [place] [address] Care Team Providers Care Orthopedic Shoe Maker Name Role Phone Carlos A Rice MD Primary Care Provider Unavailab amada PeterMary Unavailable [phone] REASON FOR VISIT [facility] results Medications Medication SIG (Take, Route, Fr equency, Duration) Notes Start Date End Date Status Terbinafine HCl 250 MG 1 tablet Orally O nce a day for 7 days days then stop for 3 weeks repeat cycle for 90 days 10/18/2024 Active Encounters Encounter Location Date Provider Diagnosis [address] [address] 10/18/2024 Mary Green Plan Of Treatment Medication Medication Name Sig Start Date Stop Date Notes Terbinafine HCl 250 MG 1 tablet Orally O nce a day for 7 days days then stop for 3 weeks repeat cycle for 90 days 10/18/2024 Next Appt Details Provider Name:Mary Green , 01/23/2025 11:30:00 AM, [address] [place] [address], [phone], Progress Notes * Huog HOLLINS EDOB:[birth year] (54 yo M)Acc No.[id number]:10/18/2024 Patient:?Hugo HOLLINS :1970???Age:54 Y???Sex:Male Address:[address] [place], [address] * Refills? Start Terbinafine HCl Tablet, 250 MG, Orally, 21, 1 tablet, Once a day for 7 days days then stop for 3 weeks repeat cycle, 90 days, Refills=3 * true * Date:? Generated for Jourdan medina/Margot/Carolitting on:?11/07/2024 11:29 AM EST
--- OUTSIDE RECORDS SUMMARY | 2024-11-07 11:29 | XMS_ITS | Data Portability ---
Author Organization [facility] Address [address] [place] [address] Care Team Providers Care Cook Morning Name Role Phone DANY RONDON Primary Care Provider Assessment Encounter Date Assessment Date Assessment LastModified by Organization Details LastModified Time 12/13/2018 12/13/2018 Hugo Phipps is a 48 year old Right handed man with neck pain radiating into both upper extremities, left is greater than right . On exam ,he has pain on flexion. Spurling's sign is positive on the left. MRI Cervical spine shows mild disc herniation and moderate degenerative changes at C5-6 level causing marked right and moderate left foraminal stenosis. Repeat cervical epidural steroid injections under fluoroscopic guidance was recommended. The risks and benefits of the procedure were discussed in detail. He wishes to proceed. An appointment has been booked for the same. 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 [email or web address] Not available 12/15/2018 10:17:48 01/08/2019 01/08/2019 Hugo Phipps is a 48 year old man with neck pain radiating into left upper extremity . On exam ,he has pain on flexion. Spurling's sign is positive on the left. MRI Cervical spine shows mild disc herniation and moderate degenerative changes at C 5-6 level causing marked right and moderate left foraminal stenosis. He is here for a repeat cervical epidural steroid injections under fluoroscopic guidance . The risks and benefits of the procedure were discussed in detail. He wishes to proceed. He can follow up as needed. [email or web address] Not available 01/09/2019 15:56:51 04/09/2019 04/09/2019 Hugo Phipps is a 49 year old man with neck pain radiating into left upper extremity . On exam ,he has pain on flexion. Spurling's sign is positive on the left. MRI Cervical spine shows mild disc herniation and moderate degenerative changes at C 5-6 level causing marked right and moderate left foraminal stenosis. He is here for a repeat cervical epidural steroid injections under fluoroscopic guidance . The risks and benefits of the procedure were discussed in detail. He wishes to proceed. He has been having increased pain with numbness and weakness in both upper extremities now . I will order a MRI Cervical spine. [email or web address] Not available 04/12/2019 09:00:33 05/06/2021 05/06/2021 Hugo Phipps is a 48 year old Right handed man with neck pain radiating into both upper extremities, left is greater than right . On exam ,he has pain on flexion. Spurling's sign is positive on the left. MRI Cervical spine shows mild disc herniation and moderate degenerative changes at C5-6 level causing marked right and moderate left foraminal stenosis. Repeat cervical epidural steroid injections under fluoroscopic guidance was recommended. The risks and benefits of the procedure were discussed in detail. He wishes to proceed. An appointment has been booked for the same. 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 [email or web address] Not available 05/06/2021 10:59:22 06/22/2021 06/22/2021 Hugo Phipps is a 51 year old man with neck pain radiating into left upper extremity . On exam ,he has pain on flexion. Spurling's sign is positive on the left. MRI Cervical spine shows mild disc herniation and moderate degenerative changes at C 5-6 level causing marked right and moderate left foraminal stenosis. He is here for a repeat cervical epidural steroid injections under fluoroscopic guidance . The risks and benefits of the procedure were discussed in detail. He wishes to proceed. He can follow up as needed. [email or web address] Not available 06/22/2021 11:57:02 Plan of Treatment Reminders Order Date Submit Date Provider Last Modified By Organization Details Last Modified Time Details Appointments None recorded. Lab None recorded. Referral None recorded. Procedures None recorded. Surgeries None recorded. Imaging MRI, cervical spine, w/o contrast - Patient has appointment on 04/16/2019 at 3 PM 2018 [id number] [facility], [address] , [facility] [address], [place], [address], 9 15:49:33 Medication Orders None recorded. Patient TargetsNo targets recorded. Patient Instructions Encounter Date Encounter Id Patient Instructions Last Modified By Organization Details Last Modified Time 12/13/2018 [id number] He was advised against bed rest lasting longer than four days and to continue activities as tolerated. [email or web address] Not available 12/15/2018 10:17:03 01/08/2019 [id number] He was advised against bed rest lasting longer than four days and to continue activities as tolerated. [email or web address] Not available 01/09/2019 15:56:51 04/09/2019 [id number] He was advised against bed rest lasting longer than four days and to continue activities as tolerated. [email or web address] Not available 04/09/2019 15:11:31 05/06/2021 [id number] He was advised against bed rest lasting longer than four days and to continue activities as tolerated. [email or web address] Not available 05/06/2021 10:59:09 06/22/2021 [id number] He was advised against bed rest lasting longer than four days and to continue activities as tolerated. [email or web address] Not available 06/22/2021 11:55:38 Reason for Referral None Reported. Results Created Date Observation Date Name Description Value Unit Range Abnormal Flag Note LastModifiedBy Organization Detail LastModifiedTime 04/17/2004/16/2019 MRI, cervi patricia spine , w/o contr ast No observ ation record ed. [email or web address] [facility] [address], [address], 06/06/2019 10:52:26 Result Notes None recorded. Problems Name Problem SNOMED Code Status Onset Date Resolution Date Notes Provider Name and Address Organization Details Recorded Time Muscle pain [id number] Sunil serrano MD [address] , [address], [place], [address], [place] [facility] 6 09:41:15 Degeneration of cervical intervertebral disc 58165883 Sunil serrano MD [address] , [address], [place], [address], [place] [facility] 6 09:41:15 Spinal stenosis in cervical region 37983936 Active Papo serrano MD [address] , [address], [place], [address], [place] [facility] 6 09:41:15 Cervical radiculopathy 94424757 Active Papo serrano MD [address] , [address], [place], [address], [place] [facility] 6 09:41:15 Problem Notes None recorded. Procedures Surgical History Date Name Laterality Status Provider Name and Address Organization Details Recorded Time 06/22/20 21 Cervical Epidural Steroid injection under fluroscopic guidance completed Papo Nevarez MD [address] , [address], [place], [address], [place] [facility] 06/22/2021 11:56:29 04/09/20 19 Cervical Epidural Steroid injection under fluroscopic guidance completed Papo Nevarez MD [address] , [address], [place], [address], [place] [facility] 04/09/2019 15:12:26 01/09/20 19 Cervical Epidural Steroid injection under fluroscopic guidance completed Papo Nevarez MD [address] , [address], [place], [address], [place] [facility] 01/09/2019 15:57:53 03/21/20 18 Cervical Epidural Steroid injection under fluroscopic guidance completed Papo Nevarez MD [address] , [address], [place], [address], [place] [facility] 03/21/2018 13:56:24 01/25/20 18 Cervical Epidural Steroid injection under fluroscopic guidance completed Papo Nevarez MD [address] , [address], [place], [address], [place] [facility] 01/24/2018 10:15:06 01/11/20 17 Cervical Epidural Steroid injection under fluroscopic guidance completed Papo Nevarez MD [address] , [address], [place], [address], [place] [facility] 01/11/2017 15:35:32 04/26/20 16 Cervical Epidural Steroid injection under fluroscopic guidance completed Papo Nevarez MD [address] [facility] , [address], [place], [address], [place] [facility] 04/28/2016 13:45:32 Arthroscopic Surgery completed Papo Nevarez MD [address] [facility] , [address], [place], [address], [place] [facility] 04/01/2016 11:19:26 Appendectomy completed Papo Nevarez MD [address] , [address], [place], [address], [place] [facility] 04/01/2016 11:20:57 Imaging Results Imaging Date Name Status LastModified by [facility] Details LastModified Time 04/16/2019 MRI, cervical spine, w/o contrast completed [facility] [address] [facility] [address], [place], [address], 06/06/2019 10:52:26 Procedure Notes None recorded. Medical Equipment None Reported. Allergies No known drug allergies Medications Name Sig Start Date Stop Date Status Note LastModified by Organization Details LastModified Time naltrexone 3mg caps TAKE 1 CAPSULE BY MOUTH AT BEDTIME 01/08 completed Not Available Not Available Not Available desoximetas one 0.05 % topical cream 06/22 completed Not Available Not Available Not Available ibuprofen 800 mg tablet active Not Available Not Available Not Available minocycline 100 mg capsule 12/13 completed Not Available Not Available Not Available meloxicam 15 mg tablet TAKE 1 TABLET BY MOUTH EVERY DAY NEEDED 12/29 completed Not Available Not Available Not Available lisinopril 20 mg tablet TAKE 1 TABLET BY ORAL ROUTE EVERY DAY active Not Available Not Available No t Available amlodipine 5 mg tablet TAKE 1 TABLET BY MOUTH EVERY DAY 12/13 completed Not Available Not Available Not Available ketorolac 0.5 % eye drops INSTILL 1 drop into left eye four times daily. START ON 09/13/2020 AT BREAKFAST , LUNCH, DINNER & BED TIME. active Not Available Not Available No t Available rifampin 300 mg capsule TAKE 1 CAPSULE BY MOUTH TWICE A DAY WITH MEALS 06/22 completed Not Available Not Available Not Available dexamethaso ne 4 mg tablet active Not Available Not Available Not Available tacrolimus 0.03 % topical ointment APPLY TO AFFECTED AREA OF PSORIASIS ON SENSITIVE SKIN TWICE A DAY 06/22 completed Not Available Not Available Not Available doxycycline hyclate 100 mg tablet active Not Available Not Available No t Available naproxen 500 mg tablet TAKE 1 TABLET BY MOUTH TWICE A DAY WITH FOOD 05/06 completed Not Available Not Available Not Available tobramycin 0.3 %-dexametha sone 0.1 % eye drops,suspe nsion 12/29 completed Not Available Not Available Not Available oxycodone 5 mg tablet TAKE 1 TO 2 TABLETS BY MOUTH EVERY 4 TO 6 HOURS DIRECTED NEEDED FOR PAIN. DO NOT DRIVE 05/06 completed Not Available Not Available Not Available ciclopirox 0.77 % topical cream APPLY TO AFFECTED AREA TWICE A DAY 06/22 completed Not Available Not Available Not Available escitalopra m 10 mg tablet 12/29 completed Not Available Not Available Not Available minocycline 100 mg tablet TAKE 1 TABLET BY MOUTH TWICE A DAY WITH FOOD 05/06 completed Not Available Not Available Not Available Vitamin C 12/29 completed Not Available Not Available Not Available Fish Oil 04/09 completed Not Available Not Available Not Available fenofibrate nanocrystal lized 145 mg tablet 12/29 completed Not Available Not Available Not Available fenofibrate 150 mg capsule Take 1 capsule every day by oral route. active Not Available Not Available No t Available coQ10 (ubiquinol) 12/29 completed Not Available Not Available Not Available Fluarix Quad [id number] (PF) 60 mcg (15 mcg x 4)/0.5 mL IM syringe TO BE ADMINISTE RED BY PHARMACIS T FOR IMMUNIZAT ION 12/29 completed Not Available Not Available Not Available Vitals Date Recorded Body height Heart rate Oxygen saturation Oxygen saturation in Arterial blood by Pulse oximetry Systolic blood pressure Diastolic blood pressure Provider Name and Address Organization Details Last Updated DateTime 9 177.8 cm 69 /min 97 % 97 % 130 mm[Hg] 81 mm[Hg] Lilia Lott [facility] 9 15:53:34 Date Recorded Body height Heart rate Oxygen saturation Oxygen saturation in Arterial blood by Pulse oximetry Systolic blood pressure Diastolic blood pressure Provider Name and Address Organization Details Last Updated DateTime 9 177.8 cm 80 /min 97 % 97 % 151 mm[Hg] 87 mm[Hg] Lilia Rodgerszier [place] [facility] 9 11:37:12 Date Recorded Body height Body mass index (BMI) Body weight Heart rate Oxygen saturation Oxygen saturation in Arterial blood by Pulse oximetry Pain severity - 0-10 verbal numeric rating [Score] - Reported Systolic blood pressure Diastolic blood pressure Provider Name and Address Organization Details Last Updated DateTime 9 177.8 cm 28 kg/m2 16477.5 1 g 75 /min 97 % 97 % 5 136 mm[Hg] 80 mm[Hg] Papo serrano MD [address] [facility] , [address], [facility] [place], [address], [place] [facility] 9 14:39:52 Date Recorded Heart rate Oxygen saturation Oxygen saturation in Arterial blood by Pulse oximetry Systolic blood pressure Diastolic blood pressure Provider Name and Address Organization Details Last Updated DateTime 1 57 /min 96 % 96 % 131 mm[Hg] 72 mm[Hg] Karina Tyrell [place] [facility] 1 10:23:41 Date Recorded Heart rate Oxygen saturation Oxygen saturation in Arterial blood by Pulse oximetry Systolic blood pressure Diastolic blood pressure Provider Name and Address Organization Details Last Updated DateTime 1 66 /min 97 % 97 % 131 mm[Hg] 77 mm[Hg] Karina Tyrell [place] [facility] 1 11:28:36 Social History Question Answer Notes LastModified by Organizat ion Details LastModified Time Tobacco Smoking Status Former Smoker quit 20 years ago Not Available [employer] 06/19/2020 03:16:10 What Is Your Level Of Alcohol Consumption? None [id number] Information not available 06/19/2020 Which Illicit Or Recreational Drugs Have You Used? 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 With Others Information not available 04/01/2016 Marital Status Informati on not available 04/01/2016 What Was The Date Of Your Most Recent Tobacco Screening? 01/09/2019 [id number] Information not available 06/19/2020 Sex: Unknown Functional Status None recorded. Mental Status None recorded. Family History Relationship Description Onset Age of this Age Resolved Age Notes LastModified by Organization Details LastModified Time Father Problem oteoar thriti s manas Not available 04/27/2016 09:38:19 Mother Malignant tumor of breast rozn Not available 04/05 09:38:19 Medical History Condition Response Hypertension Y Past Encounters Encounter ID Performer Location Encounter Start Date Encounter Closed Date Diagnosis/Indication Diagnosis SNOMED-CT Code Diagnosis ICD10 Code Diagnosis Note [id number] Papo Nevarez MD PAIN OFFICE [address] [place] [address] 04/01/2016 10:57:00 04/05/2016 09:01:13 Cervical radiculopathy 91921162 M54.12 Degenerati on of cervical intervertebral disc 94102103 M50.32 Muscle pain 66737789 M79 .1 Spinal beau nosis in cervical region 14336403 M48.02 [id number] Papo Nevarez MD PAIN OFFICE [address] [place] [address] 04/26/2016 15:00:12 04/27/2016 09:41:49 Cervical radiculopathy 94609822 M54.12 Muscle pain 21981078 M79 .1 Degenerati on of cervical intervertebral disc 61853239 M50.32 Spinal beau nosis in cervical region 65904257 M48.02 [id number] Papo Nevarez MD PAIN OFFICE [address] [place] [address] 05/23/2016 10:13:31 05/23/2016 14:52:23 Cervical radiculopathy 81249119 M54.12 Muscle pain 03535007 M79 .1 Degenerati on of cervical intervertebral disc 75361416 M50.32 Spinal beau nosis in cervical region 76167007 M48.02 [id number] Papo Nevarez MD PAIN OFFICE [address] [place] [address] 12/28/2016 13:10:08 12/28/2016 15:36:18 Cervical radiculopathy 00324275 M54.12 Degenerati on of cervical intervertebral disc 25025591 M50.322 Muscle pain 79656404 M79 .1 Spinal beau nosis in cervical region 11311072 M48.02 [id number] Papo Nevarez MD PAIN OFFICE [address] [facility] [place] [place] [address] 01/10/2017 14:38:49 01/11/2017 15:37:48 Cervical radiculopathy 78847452 M54.12 Muscle pain 47342385 M79 .1 Degenerati on of cervical intervertebral disc 18334975 M50.322 Spinal beau nosis in cervical region 74092469 M48.02 [id number] Papo Nevarez MD PAIN OFFICE [address] [facility] [place] [address] 12/29/2017 10:28:38 01/01/2018 08:54:34 Cervical radiculopathy 95900540 M54.12 Degenerati on of cervical intervertebral disc 48565087 M50.322 Muscle pain 10338949 M79 .1 Spinal beau nosis in cervical region 99677388 M48.02 [id number] Papo Nevarez MD PAIN OFFICE [address] [facility] [place] [address] 01/24/2018 08:45:01 01/24/2018 13:34:53 Cervical radiculopathy 05073160 M54.12 Muscle pain 63814976 M79 .1 Degenerati on of cervical intervertebral disc 77597015 M50.322 Spinal beau nosis in cervical region 01670445 M48.02 [id number] Papo Nevarez MD PAIN OFFICE [address] [facility] [place] [address] 03/21/2018 10:21:26 03/21/2018 14:00:12 Cervical radiculopathy 02951297 M54.12 Muscle pain 69430344 M79 .1 Degenerati on of cervical intervertebral disc 58276365 M50.322 Spinal beau nosis in cervical region 88524227 M48.02 [id number] Papo Nevarez MD [facility] [address] [facility] [place] [place] [address] 12/13/2018 15:25:03 12/15/2018 10:18:21 Cervical radiculopathy 52785115 M54.12 Degenerati on of cervical intervertebral disc 26077540 M50.322 Muscle pain 95653486 M79 .18 Spinal beau nosis in cervical region 36932083 M48.02 [id number] Papo Nevarez MD PAIN OFFICE [address] [facility] [place] [address] 01/08/2019 11:27:46 01/09/2019 16:00:26 Cervical radiculopathy 77361471 M54.12 Muscle pain 06826112 M79 .18 Degenerati on of cervical intervertebral disc 72903582 M50.322 Spinal beau nosis in cervical region 22763010 M48.02 [id number] Papo Nevarez MD PAIN OFFICE [address] [facility] [place] [address] 04/09/2019 14:16:48 04/09/2019 15:15:21 Cervical radiculopathy 73758080 M54.12 Muscle pain 59080192 M79 .18 Degenerati on of cervical intervertebral disc 66378490 M50.322 Spinal beau nosis in cervical region 95669119 M48.02 [id number] Papo Nevarez MD PAIN OFFICE [address] [facility] [place] [address] 05/06/2021 10:16:23 05/06/2021 11:10:47 Cervical radiculopathy 66593897 M54.12 Degenerati on of cervical intervertebral disc 37362034 M50.322 Muscle pain 67832685 M79 .18 Spinal beau nosis in cervical region 96715445 M48.02 [id number] Papo Nevarez MD [facility] [address] [facility] [place] [address] 06/22/2021 11:23:23 06/22/2021 11:58:56 Cervical radiculopathy 61069159 M54.12 Muscle pain 91229854 M79 .18 Degenerati on of cervical intervertebral disc 44308209 M50.322 Spinal beau nosis in cervical region 89583767 M48.02 Health Concerns Section Related Observation LastModified by Organization Detai ls LastModified Time None Recorded Concern Status LastModified by Organization Details LastModified Time None Recorded Advance Directives Directive None Recorded Payers Encounter Date Sequence Insurance Name Policy Number Policy Oliva Covered Member ID Oliva Member ID Guarantor Name 12/13/2018 1 [facility] [id number] Hugo Phipps [id number] Hugo [place] 01/08/2019 1 [facility] [id number] Hugo [place] [id number] Hugo [place] 04/09/2019 1 [facility] [id number] Hugo [place] [id number] Hugo [place] 05/06/2021 1 [facility] [id number] Hugo [place] [id number] Hugo [place] 06/22/2021 1 [facility] [id number] Hugo [place] [id number] Hugo [place] Notes Date Note Type Note Provider Name and Address Organization Details Recorded Time 12/13/2018 text/html He is here for a follow up. He was last seen in 03/21/2018 for a cervical epidural steroid injection under fluoroscopic guidance. He states he has seen Dr. Loza who did not recommend surgrey and then he subsequently did see Dr. Kelley . He recommend ACDF but Mr. Phipps did not want to proceed with surgery as he had two different recommendations. He continues to have neck pain radiating into both upper extremities, left is greater than right. He does notice some numbness and tingling. He does regular exercises and feels his strength is good. He has no history of bladder or bowel incontinence. Papo Nevarez MD [address] [facility] , [facility] [address], [place], [address], [facility] - [facility] 12/16/2018 16:56:02 01/08/2019 text/html He is here for a repeat cervical epidural steroid injection under fluoroscopic guidance. Papo Nevarez MD [address] [facility] [address], [place], [address], [facility] - [facility] 01/11/2019 09:21:55 04/09/2019 text/html He is here for a repeat cervical epidural steroid injection under fluoroscopic guidance. Papo Nevarez MD [address] [facility] , [address], [place], [address], [place] [facility] 04/12/2019 09:01:38 05/06/2021 text/html He is here for a follow up visit. He is complaining of neck pain radiating into both upper extremities. MRI Cervical spine shows mild disc herniation and moderate degenerative changes at C5-6 level causing marked right and moderate left foraminal stenosis . He has seen Dr. Kelley and Dr. Gomez and has decided against having surgery. He has been doing traction and states he feels better. He has numbness in his arms. He has no history of bladder or bowel incontinence. Papo Nevarez MD [address] [facility] , [address], [place], [address], [facility] - Pain Management 05/06/2021 11:30:21 06/22/2021 text/html He is here for a repeat cervical epidural steroid injection under fluoroscopic guidance. Papo Nevarez MD [address] [facility] , [address], [place], [address], [facility] - Pain Management 06/23/2021 08:51:31
--- OUTSIDE RECORDS SUMMARY | 2024-11-07 11:29 | XMS_ITS | Encounter Summary ---
Author Organization [facility] Address [address] [facility] [address] [place] [address] Phone Care Team Providers Care Breeding Technician Name Role Phone Carlos A Rice MD Primary Care Provider [phone] Encounter Details Date Type Department Care Team (Latest Contact Info) Description 06/21/2018 Transcribe Orders [facility] Laboratory [address] [place] [address] Corey Quintana MD [address] [place] [id number] [email or web address] Hereditary hemochromatosis (Primary Dx) Social History [...] EDT) WBC 5.75 3.40 - 11.20 K/uL [facility] RBC 4.89 4.50 - 5.50 M/uL [facility] HGB 16.3 13.0 - 17.0 g/dL [facility] HCT 45.6 40.0 - 51.0 % [facility] PLT 234 130 - 400 K/uL [facility] MCV 93.3 79.0 - 98.0 fL [facility] MCH 33.3 27.0 - 34.8 pg [facility] MCHC 35.7 31.5 - 36.0 g/dL [facility] RDW 11.4 10.8 - 14.6 % [facility] MPV 9.6 9.4 - 12.4 fl [facility] NRBC 0.00 /100 WBCs [facility] ABSOLUTE NRBC 0.00 K/uL [facility] Blood 06/21/2018 11:2 5 AM EDT 06/21/2018 11:28 AM EDT Corey Quintana MD LAB BLOOD ORDERABLES Performing Organization Address City/[facility] Co de Phone Number [address] [address] * Ferritin (06/21/2018 11:25 AM EDT) FERRITIN 121 30 - 400 ug/L [facility] Blood 06/21/2018 11:2 5 AM EDT 06/21/2018 11:28 AM EDT Corey Quintana MD LAB BLOOD ORDERABLES Performing Organization Address [facility] Co de Phone Number [address] [address] * (ABNORMAL) LFTs (hepatic panel) (06/21/2018 11:25 AM EDT) ALKALINE PHOSPHATASE 132(H) 39 - 117 U/L [facility] TOTAL BILIRUBIN 0.3 0.0 - 1.2 mg/dL [facility] DIRECT BILIRUBIN <0.2 0 - 0.3 mg/dL [facility] Bilirubin (Indirect) NOT CALCULATED 0 - 1.5 mg/dL [facility] AST 25 0 - 37 U/L [facility] ALT 29 0 - 40 U/L [facility] TOTAL PROTEIN 7.1 6.5 - 8.0 g/dL [facility] ALBUMIN 4.6 3.9 - 4.8 g/dL [facility] GLOBULIN 2.5 1 - 4.8 g/dL [facility] A/G Ratio 1.84 1.00 - 4.80 RATIO [facility] Blood 06/21/2018 11:2 5 AM EDT 06/21/2018 11:28 AM EDT Corey Quintana MD LAB BLOOD ORDERABLES [facility] [address] [place] [address] documented in this encounter Visit Diagnoses Diagnosis Hereditary hemochromatosis- Primary documented in this encounter Care Teams Breeding Technician Relationship Specialty Start Date End Date Carlos A Rice MD PCP - General Internal Medicine 06/21/18 documented as of this encounter Additional Source Comments The information contained in this document represents components of the legal health record. It is not the complete legal health record.[facility]
--- OUTSIDE RECORDS SUMMARY | 2024-11-07 11:30 | XMS_ITS | Patient Health Record ---
Author Organization [facility] Address [address] [place] [address] Care Team Providers Care Faculty Criminal Justice Name Role Phone Carlos A Rice MD Primary Care Provider Unavailab Mary Sharpe Unavailable [phone] Allergies No Known Allergies Results Component Value Reference Range Notes X ray : Foot, left 3V Reviewed date:10/17/2024 12:13:56 PM Interpretation:See Examination above Performing Lab: Notes/Report: See Examination above Reason For Referral No Information Medications Medication SIG (Take, Route, Frequency, Duration) Notes Start Date End Date Status amLODIPine Besylate Not-Taking Fenofibrate Not-Taki ng Ciclopirox Olamine 0.77 % 1 application Externally Twice a day for 30 days Active Lisinopril 5 MG 1 tablet Orally Once a day for 30 day(s) Active Tricor Not-Taking Vitamin C Not-Taking Fish Oil Not-Taking Ciclopirox Olamine 0.77% 2 application t o affected area Apply to effected areas BID for 30 days 10/15/2012 Not-Taking Terbinafine HCl 250 MG 1 tablet Orally O nce a day for 7 days days then stop for 3 weeks repeat cycle for 90 days 10/18/2024 Active Ciclopirox Olamine 0.77% external Apply to effected areas twice a day for 30 days 03/29/2016 Not-Taking Immunizations Vaccine Route Administration Date Status Comme nts COVID-19 Ck & Ck/Srini Unknown 08/19/2021 R efused Influenza Unknown 06/04/2019 Administered Social History Tobacco Use: Social History Observation Description Date Details (start date - stop date) Never Smoker NA - NA Alcohol Screen Question Answer Notes Did you have a drink containing alcohol in the p ast year? No Points 0 Interpretation Negative Tobacco use other than smoking: Question Answer Notes Are you an other tobacco user? No Tobacco Control (Standard) Question Answer Notes Tobacco use: Nonsmoker Problems Problem Type SNOMED Code ICD Code Onset Dates Problem Status W/U Status Risk Notes Problem Acquired hammer toe of left foot (5012894241974458) Other hammer toe(s) (acquired), left foot (M20.42) Active confirmed Problem 782007735 Raynaud's disease without gangrene (I73.00) Active confirmed Problem Localized, primary osteoarthritis of the ankle and/or foot (286176307) Arthritis of joint of lesser toe, left (M19.072) Active confirmed Vital Signs Blood pressure diastolic 75 mm Hg 10/17/2024 Height 0zu19et in 10/17/2024 Blood pressure systolic 140 mm Hg 10/17/2024 Weight 189 lbs 10/17/2024 BMI 27.12 kg/m2 10/17/2024 Encounters Encounter Location Date Provider Diagnosis [facility] [address] 10/17/2024 Mary Black Onychomycosis B35.1 ; Other hammer toe(s) (acquired), left foot M20.42 ; Pain in right toe(s) M79.674 ; Pain in left toe(s) M79.675 ; Arthritis of joint of lesser toe, left M19.072 ; Subluxation of metatarsophalangeal joint of toe, initial encounter S93.149A and Raynaud's disease without gangrene I73.[address] [facility] [address] 10/18/2024 Mary Black Assessments Encounter Date Diagnosis (ICD Code) Assessment Notes Treatment Notes Treatment Clinical Notes Section Notes 10/17/2024 Other hammer toe(s) (acquired), left foot (ICD-10 - M20.42) 10/17/2024 Onychomycosis (ICD-1 0 - B35.1) 10/17/2024 Pain in right toe(s) (ICD-10 - M79.674) 10/17/2024 Pain in left toe(s) (ICD-10 - M79.675) 10/17/2024 Arthritis of joint o f lesser toe, left (ICD-10 - M19.072) 10/17/2024 Subluxation of metatarsophalangeal joint of toe, initial encounter (ICD-10 - S93.149A) 10/17/2024 Raynaud's disease without gangrene (ICD-10 - I73.00) Plan Of Treatment Pending Test Test Name Order Date *Liver Function Test (LFT) 04/05/2019 *Liver Function Test (LFT) 11/07/2019 *Liver Function Test (LFT) 10/17/2024 *Liver Function Test (LFT) 06/11/2019 *Liver Function Test (LFT) 03/12/2012 [id number] NAIL, 6 OR MORE 08/19/2021 [id number] NAIL, 6 OR MORE 02/17/2022 [id number] NAIL, 1-5 08/19/2021 Next Appt Details Provider Name:Mary Green , 01/23/2025 11:30:00 AM, [address] [place], [address], Insurance Providers Payer Name Payer Address Payer Phone Subscriber Number Group Number Insured Name Patient Relationship to Insured Coverage Start Date Coverage End Date [facility] [address] [place] [address] [id number] Chelsey Phipps Spouse - patient is the spouse of the insured Medical (General) History Medical History History ICD Code chicken pox high blood pressure hypercholesterolemia Psoriasis/Eczema Sciatica Hemachromatosis Lyme disease Surgical History Surgery Date(Month/Year) appendectomy 1984 Right Shoulder 2014
--- OUTSIDE RECORDS SUMMARY | 2024-11-07 11:30 | XMS_ITS | Encounter Summary ---
Author Organization [facility] Address [address] [place] [address] [place] [address] Phone Care Team Providers Care Drafter Automotive Design Name Role Phone Carlos A Rice MD Primary Care Provider [phone] Encounter Details Date Type Department Care Team (Latest Contact Info) Description 09/24/2024 Transcribe Orders [facility] [address] [address] Myesha Gomez PA [address] [place] [address] Screening for unspecified condition (Primary Dx) Social History Tobacco Use Types Packs/Day Years Used Date Smoking Tobacco: Never Smokeless Tobacco: Never Alcohol Use Standard Drinks/Week Comments Never 0 (1 standard drink = 0.6 oz pur e alcohol) Education Answer Date Recorded Are you interested in more education? Not on ajbari e 12/30/2022 Are you concerned about learning? [...] as of this encounter Results * Ferritin (10/11/2024 10:43 AM EST) FERRITIN 120 30 - 400 ug/L [facility] Blood 10/11/2024 10:4 3 AM EST 10/11/2024 10:47 AM EST Myesha IRAHETA LAB BLOOD ORDERABLE S [facility] [address] [place] [address] * Liver fibrosis test (10/11/2024 10:43 AM EST) Fibrosis score 0.31 [facility] Interpretation (Fibrosis) SEE NOTE [facility] Comment: (NOTE) minimal fibrosis Fibro Test Score [...] HCV Fibrosis Grade F1 Q [facility] NECROINFLAMM SCORE 0.07 Q [facility] NECROINFLAMM GRADE A0 Q [facility] NECROINFLAM[facility] INTERP SEE NOTE [facility] Comment: (NOTE) no activity ActiTest Score (a) [...] A2 Macroglobulin 211 106 - 279 mg/dL [employer] [employer] [facility] Haptoglobin 95 43 - 212 mg/dL [employer] Apolipoprotein A1 147 94 - 176 mg/dL [facility] TOTAL BILIRUBIN 0.6 0.2 - 1.2 mg/dL [facility] GGT 24 3 - 95 U/L [employer] ALT 18 9 - 46 U/L [facility] Specimen/Product ID [id number] [employer] Comments (Chemistry) SEE NOTE [employer] [employer] [facility] Comment: (NOTE) The reliability of results is dependent on compliance with the preanalytical and analytical conditions recommended by [employer]. The tests have to be deferred for: [...] The performance characteristics have been determined by [facility]. It has not been cleared or approved by the U.S. Food and Drug Administration. Performance characteristics refer to the analytical performance of the test. [employer], the associated logo, [employer] and all associated [employer] rivers are the registered trademarks of [employer]. All third constitution party rivers - (R) and (TM) - are the property of their respective owners. (C) 1580-7725 [employer]. All rights reserved. Blood 10/11/2024 10:4 3 AM EST 10/11/2024 10:47 AM EST Myesha IRAHETA LAB BLOOD ORDERABLE S [facility]AL[facility]OUD/[facility] [address] [place] [address], [facility] [phone] * (ABNORMAL) Comprehensive metabolic panel (10/11/2024 10:43 AM EST) SODIUM 137 133 - 146 mmol/L [facility] POTASSIUM 4.5 3.3 - 5.1 mmol/L [facility] CHLORIDE 102 96 - 108 mmol/L [facility] CO2 23 21 - 35 mmol/L [facility] BUN 21(H) 6 - 19 mg/dL [facility] CREATININE 1.00 0.5 - 1.5 mg/dL [facility] GLUCOSE 114(H) 70 - 99 mg/dL [facility] ALBUMIN 4.4 3.9 - 4.8 g/dL [facility] TOTAL PROTEIN 7.7 6.5 - 8.0 g/dL [facility] CALCIUM 9.9 8.4 - 10.3 mg/dL [facility] ALKALINE PHOSPHATASE 135(H) 39 - 117 U/L [facility] TOTAL BILIRUBIN 0.4 0.0 - 1.2 mg/dL [facility] AST 18 0 - 37 U/L [facility] ALT 19 0 - 40 U/L [facility] GLOBULIN 3.3 1 - 4.8 g/dL [facility] EGFR 89 >59 mL/min/1.7 3m2 [facility] Comment:Estimated glomerular filtration rate calculated using the CKD-EPI refit equation. ANION GAP 17 10 - 20 mmol/L [facility] Blood 10/11/2024 10:4 3 AM EST 10/11/2024 10:47 AM EST Myesha IRAHETA LAB BLOOD ORDERABLE S [facility] [address] [place] [address] documented in this encounter Visit Diagnoses Diagnosis Screening for unspecified condition- Primary documented in this encounter Care Teams Drafter Automotive Design Relationship Specialty Start Date End Date Carlos A Rice MD PCP - General Internal Medicine 06/21/18 documented as of this encounter Additional Source Comments The information contained in this document represents components of the legal health record. It is not the complete legal health record.[facility]
--- OUTSIDE RECORDS SUMMARY | 2024-11-07 11:31 | XMS_ITS ---
Author Organization [facility] michael Hooks Address [address] [place] [address] Care Team Providers Care Oyster Bed Worker Name Role Phone Carlos A Rice MD Primary Care Provider Unavailab Mary Sharpe Unavailable [phone] Allergies No Known Allergies Results Component Value Reference Range Notes X ray : Foot, left 3V Reviewed date:10/17/2024 12:13:56 PM Interpretation:See Examination above Performing Lab: Notes/Report: See Examination above REASON FOR VISIT Painful nail(s) aggravated by shoes causing difficulty standing/walking, Painful Toe(s) Medications Medication SIG (Take, Route, Frequency, Duration) Notes Start Date End Date Status Tricor Not-Taking Vitamin C Not-Taking Fish Oil Not-Taking Ciclopirox Olamine 0.77% 2 application t o affected area Apply to effected areas BID for 30 days 10/15/2012 Not-Taking Ciclopirox Olamine 0.77% external Apply to effected areas twice a day for 30 days 03/29/2016 Not-Taking amLODIPine Besylate Not-Taking Fenofibrate Not-Taki ng Ciclopirox Olamine 0.77 % 1 application Externally Twice a day for 30 days Active Lisinopril 5 MG 1 tablet Orally Once a day for 30 day(s) Active Social History Tobacco Use: Social History Observation Description Date Details (start date - stop date) Never Smoker NA - NA Tobacco use other than smoking: Question Answer Notes Are you an other tobacco user? No Tobacco Control (Standard) Question Answer Notes Tobacco use: Nonsmoker Problems Problem Type SNOMED Code ICD Code Onset Dates Problem Status W/U Status Risk Notes Problem Acquired hammer toe of left foot (8085301259012413) Other hammer toe(s) (acquired), left foot (M20.42) Active confirmed Problem Localized, primary osteoarthritis of the ankle and/or foot (759815665) Arthritis of joint of lesser toe, left (M19.072) Active confirmed Problem 751404463 Raynaud's disease without gangrene (I73.00) Active confirmed Vital Signs Height 5zn28am in 10/17/2024 Weight 189 lbs 10/17/2024 BMI 27.12 kg/m2 10/17/2024 Blood pressure systolic 140 mm Hg 10/17/19 25 Blood pressure diastolic 75 mm Hg 025 Encounters Encounter Location Date Provider Diagnosis [facility] [address] [address] 10/17/2024 Mary Black Onychomycosis B35.1 ; Other hammer toe(s) (acquired), left foot M20.42 ; Pain in right toe(s) M79.674 ; Pain in left toe(s) M79.675 ; Arthritis of joint of lesser toe, left M19.072 ; Subluxation of metatarsophalangeal joint of toe, initial encounter S93.149A and Raynaud's disease without gangrene I73.00 Assessments Encounter Date Diagnosis (ICD Code) Assessment Notes Treatment Notes Treatment Clinical Notes Section Notes 10/17/2024 Onychomycosis (ICD-1 0 - B35.1) 10/17/2024 Other hammer toe(s) (acquired), left foot (ICD-10 - M20.42) 10/17/2024 Pain in right toe(s) (ICD-10 - M79.674) 10/17/2024 Pain in left toe(s) (ICD-10 - M79.675) 10/17/2024 Arthritis of joint o f lesser toe, left (ICD-10 - M19.072) 10/17/2024 Subluxation of metatarsophalangeal joint of toe, initial encounter (ICD-10 - S93.149A) 10/17/2024 Raynaud's disease without gangrene (ICD-10 - I73.00) Plan Of Treatment Pending Test Test Name Order Date *Liver Function Test (LFT) 10/17/2024 Next Appt Details Follow Up: prn, Reason: Provider Name:Mary Green , 01/23/2025 11:30:00 AM, [address] [place], [address], Progress Notes * Hugo HOLLINS EDOB:[birth year] (54 yo M)Acc No.[id number]:10/17/2024 Progress Note Patient:?Hugo HOLLINS Provider:?Maryoscar GreenYARIEL :1970???Age:54 Y???Sex:Male Rambo e:10/17/2024 Address:[address] [place], [place] [id number] Pcp:Carlos A Rice MD Subjective: * Chief Complaints: * ???Painful nail(s) aggravate d by shoes causing difficulty standing/walkingPainful Toe(s) * HPI: ???Painful Nails:?Pt States Last PCP Visit:?Date:?09/19/2024 ???Toe pain:?Nature:?tenderness, swelling.?Location:?Left foot, 2nd toe, 3rd toe.?Duration:?, several weeks.?Course:?worse.?Aggravated by:?any pressure, shoes.?Treatments:?rest/alter normal daily activity, change in shoes.? * ROS:?General/Constitutional:?Nausea?denies.?Vomiting?denies.?Hunger Thirst?denies.?Loss appetite?denies.?Chills?denies.?Fatigue?denies.?Fever?denies.?Night Sweats?denies.?Unexplained weight loss?denies.?Unexplained weight gain?denies.?HEENTM:?Dentures?denies.?Dizziness?denies.?Glasses/contacts?denies.?Retinopathy?de nies.?Blurred/double vision?denies.?TMJ?denies.?Discharge/drainage?denies.?Implants?denies.?Sore throat?denies.?Dental implants?denies.?Hard of hearing ?denies.?Difficulty chewing/swallowing/speaking?denies.?Nose bleeds?denies.?Sore mouth?denies.?Respiratory:?On Oxygen?denies.?Pneumonia/pleurisy?denies.?Bronchitis?denies.?Emphysema?denies.?C oughing?denies.?Cough blood?denies.?Shortness of breath?denies.?Wheezing?denies.?Cardiovascular:?Pacemaker?denies.?MVP?denies.?WPW?denies.?CHF?denies.?Heart attack?denies.?Septal defect?denies.?Rapid beat?denies.?Chest pain ?denies.?Atrial Fib.?denies.?Murmur/Palpitations?denies.?Gastrointestinal:?Hemorrhoids?denies.?Stomach/Abdominal pain?denies.?Dark blood stool?denies.?Irritable bowel ?denies.?Constipation?denies.?Diarrhea?denies.?Hematology:?Swelling?denies.?Clots?denies.?Varicose Veins?denies.?Bruising?denies.?Bleeding problem?denies.?Genitourinary:?Blood urine?denies.?Frequent/Painfu/urination/bladder control?denies.?Kidney stones?denies.?Infection (UTI)?denies.?Nephropathy?denies.?sex trans dis (STD)?denies.?Prostate?denies.?Musculoskeletal:?Hammertoes?denies.?Bunions?denies.?Back Pain?denies.?Muscle Cramps/ Resting?denies.?Muscle cramps / walking?denies.?Generalized aches and pains?denies.?Weakness?denies.?Integ.:?Lim?denies.?Scars?denies.?Corns/calluses?denies.?Ingrown nails?denies.?Painful nails?,admits.?Open Sores?denies.?Rashes?denies.?Neurologic:?Difficulty sleeping?denies.?Brain disorder?denies.?Numbness?denies.?Balance trouble?denies.?Confusion?denies.?Fainting/blackouts?denies.?Tingling?denies.?Tr emors?denies.? * Medical History:? * Surgical History:?appendecto my 1984Right Shoulder 2014 * Hospitalization/Major Diagno stic Procedure:?Denies Past Hospitalization * Family History:?Mother: muna aguilera, cancer, diagnosed with Other malignant neoplasm of unspecified site.?Father: alive, high blood pressure, diagnosed with Unspecified essential hypertension.? * Social History:?Tobacco Use:?Tobacco use other than smoking?Are you an other tobacco user??No ?Tobacco Control (Standard)?Tobacco use:?Nonsmoker ???Miscellaneous:?Caffeine: yes, 4 cups per day. ?Children: no. ?Exercise: yes, walking. ?Marital status: . ?Occupation: Sales. * Medications:?TakingLisinopri l 5 MG Tablet 1 tablet Orally Once a day Ciclopirox Olamine 0.77 % Cream 1 application Externally Twice a day Taking Lisinopril 5 MG Tablet 1 tablet Orally Once a day Taking Ciclopirox Olamine 0.77 % Cream 1 application Externally Twice a day Not-Taking/PRNFenofibrate amLODIPine Besylate Ciclopirox Olamine 0.77% Cream external Apply to effected areas twice a day Ciclopirox Olamine 0.77% Cream 2 application to affected area Apply to effected areas BID Fish Oil Vitamin C Tricor Medication List reviewed and reconciled with the patientNot-Taking/PRN Fenofibrate Not-Taking/PRN amLODIPine Besylate Not- Taking/PRN Ciclopirox Olamine 0.77% Cream external Apply to effected areas twice a day Not-Taking/PRN Ciclopirox Olamine 0.77% Cream 2 application to affected area Apply to effected areas BID Not-Taking/PRN Fish Oil Not-Taking/PRN Vitamin C Not- Taking/PRN Tricor Medication List reviewed and reconciled with the patient * Allergies:?N.K.D.A.yes[Aller gies Verified] Objective: * Vitals:?Ht: 2kr07dn, Wt:189, BMI:27.12, Shoe size: 8.5-9, BP:140/75mm Hg, Ht-cm: 177.8 cm, Wt-k.73 kg. * Examination: ???General Examination: ?GENERAL APPEARANCE:?Reveals a pleasant, alert, well nourished, well- developed, well hydrated individual, who demonstrates proper attention to hygiene/body habitus, and is in no acute distress, Pt serves as own historian for office visit today.?ORIENTED:?person, place, and time.?Nails: ?NAILS are:?Elongated, overgrown, dystrophic, lytic, greater than 3mm thick, discolored and friable with crumbly malodorous subungual debris, with pain on palpation.?Orthopedic: ?DIGITAL DEFORMITIES:?Digital contracture, PIPJ, 2-5 B/L, incompl-reducible with WB, or to push-up test, no over, nor underlapping, Reveals pain/swelling/redness/enlargement of PIPJ/DIPJ 2nd and 3rd left.?FOOTWEAR:? shoe gear properties exacerbate patients foot/toe deformity.?Vascular: ?DP PULSES (B):?2/4, B/L.?PT PULSES (B):?2/4, B/L.?CAPILLARY FILL TIME:?immediate, all digits, B/L.?TROPHIC CONDITION-TEXTURE/ELASTICITY/TURGOR/HAIR GROWTH (B):?normal, B/L.?TEMPERTURE GRADIENT (C):?decreased, cool to cool, proximal to distal, B/L.?PIGMENTATION:?cyanotic distal toes left.?EDEMA (C):?1/4 2nd, 3rd digits left.?Neurological: ?SENSORY:?Neurological exam reveals intact sensorium, pain sensation normal, vibration sensation intact, pinprick sensation is normal in the lower extremities, Pt denies, anesthesia, burning, paresthesia, tingling, B/L.?X-Rays - IMAGING REPORT: ?Clinical Indication(s):? Evaluate Biomechanical Deformity.?Views:?3 views of Foot, AP, LO, MO, LEFT??Taken by trained?Podiatric Wafer Line Worker (?SF ).?Findings:? normal bone and soft tissue density consistent for patients age and sex.?Digits:? show asymmetrical joint space narrowing at the PIPJ consistent with clinical finding of hammertoe deformity,show flattening of the MTH with asymmetrical joint space narrowing,2nd digit,3rd digit.?Fracture:? Negative fractures identified.? Assessment: * Assessment: 1.?Other hammer toe(s) (acqu ired), left foot - M20.42 (Primary)???2.?Onychomycosis - B35.1???3.?Pain in right toe(s) - M79.674???4.?Pain in left toe(s) - M79.675???5.?Arthritis of joint of lesser toe, left - M19.072???6.?Subluxation of metatarsophalangeal joint of toe, initial encounter - S93.149A???7.?Raynaud's disease without gangrene - I73.00??? Plan: * Treatment: 2.?Pain in left toe(s)?Imaging: X ray : Foot, left 3V (Performed Date - 10/17/2024)?See Examination above * Procedure Codes:?68816 X-RAY EXAM OF LEFT FOOT 3V, Modifiers: 26 , LT * Preventive Medicine:? ??Counseling:?Discussion:?-14: Office or other outpatient visit for the evaluation and management of an established patient, which required a medically appropriate history and/or examination and MODERATE level of DECISION MAKING for: 1 OR MORE CHRONIC PROBLEM(S) THATS WORSENING, 2 STABLE CHRONIC PROBLEMS, A NEWLY DIAGNOSED PROBLEM WITH UNCERTAIN PROGNOSIS, AN ACUTE COMPLICATED INJURY WITH MULTIPLE TREATMENT OPTIONS, OR AN ACUTE PROBLEM WITH ACCOMPANYING SYSTEMIC SYMPTOMS, THAT POSE(S) A MODERATE RISK OF MORBIDITY. THIS CONDITION MAY ALSO INCLUDE RX DRUG MANAGEMENT, OR A DECISON FOR MINOR SURGERY. The visit on the day of the encounter encompassed interpreting the data and educating the patient as to the nature of their condition, treatment options available according to their individual PMH, meds, allergies, and overall health/living conditions, as well as any potential risks or complications that may occur from a failure to adhere to, and participate in, the recommended course of therapy. The discussion included a complete verbal, and/or written explanation of the examination results, any x-rays taken, the proposed diagnosis, and outline of the treatment plan. A schedule for future care needs was also explained. The patient verbalized an understanding of the instructions at this time and agreed to be an active participant in their treatment. If the patient should think of any questions or concerns after the visit, I have encouraged the patient to call the office.?Digital Treatment:?HT- I explained to the patient the possible etiologies of Hammertoes, including genetics/foot type/shoegear/activity level/exercise routine and the risks/benefits of all the different treatment options for their pain including: No treatment at all, Rest, Ice, New/supportive/wider/deeper Shoe gear, Digital Padding/Strapping/Taping/Bracing/Gel protective sleeves, Foot/Ankle AFO Bracing, Stretching exercises, Deep Tissue Massage, Arch support/shoe inserts with splay metatarsal padding, and Custom orthoses. I insisted that any digital devices be removed daily and not worn overnight for safety. The patient is to carefully examine the toes daily for any skin irritation while using any splinting or padding device. The advantages and disadvantages of each option were discussed and the patients questions re: shoe gear, padding, custom vs prefabricated inserts, activity level, and consistency in home treatment regimens for optimal success were answered to their verbally confirmed satisfaction, Recomm, rest, ice, proper shoegear, padding, orthotics, anti-inflammatories or tylenol as tolerated, topical analgesics, cortisone injections.?Fungal Nail Counseling:?The patient was counseled on the diagnosis, potential etiologies (including, but not limited to, environmental factors, genetic, immune deficiency), and the multiple treatment options for Onychomycosis. We discussed the risks and benefits of each option from performing no treatment, to ultraviolet light shoe treatment, to laser nail treatment, to applying topical antifungals, to taking oral antifungal medication, to surgical removal of the involved nail(s) with or without performing a matricectomy, or any combination thereof. We discussed the advantages and disadvantages of each of possible treatment and importance for adherence to all the recommended therapies for optimum success. This includes the necessity for weekly emery board self nail home debridements, and control the nail and skin environment as much as possible by only using a fresh, dry pair of shoes/socks each day, as well as keeping the skin as dry as possible through the use of sprays/powders if necessary. The patient was instructed to discard the emery board after use to prevent reinfection of the involved nail(s). We discussed the mycological and visual clinical effectiveness of topical vs oral antifungal treatments as well as each ones potential side effects and/or any patient- specific medication interactions. We discussed the reasons behind the important requirement of regular liver function testing with oral antifungal therapy for safety. Patient questions regarding use, dosage, successful outcomes, blood tests, and possible pharmaceutical interactions were reviewed and the patient verbalized that all answers were clearly understood, The Pt prefers PO treatment, An LFT was ordered in preparation for Lamisil prescription therapy.?Podiatric Counseling:?RAYNAUDS: Discussed Raynauds disease/syndrome with the patient. Raynauds is a condition in which smaller vessels of the skin constrict excessively in response to cold which in turn limits blood supply to the affected area. We recommended the patient keep their feet/toes warm especially in the cold weather. We discussed/recommended using natural vasodilators such as Arginine or Beet concentrate, topical medication such as Nitro-BID, or oral medication in the form of Antihypertensive medication including Calcium channel blockers. For oral medication Pt would be referred to their PCP for prescription. Patient questions re: the various treatment options available, their successes potential failures, and alf effects were discussed and the answers were verbally confirmed to be understood.? * Follow Up:?prn * Images: * Sign off status: Completed true * Provider:?Mary Green DPM Date:?2024 Generated for Jouradn medina/Margot/Beto on:?11/07/2024 11:30 AM EST History and Physical Notes * HPI (History of Present Illness) Category Sub-Category Detail Notes Category Not es Toe pain Nature: tenderness, swelling Location: Left foot, 2nd toe, 3rd toe Duration: , several weeks Course: worse Aggravated by: any pressure, shoes Treatments: rest/alter normal da dionne activity, change in shoes Painful Nails Pt States Last PCP Visit: Date:: 09/19/2024 Examination Category Sub-Category Detail Notes Category Not es Neurological SENSORY: Neurological exa m reveals intact sensorium, pain sensation normal, vibration sensation intact, pinprick sensation is normal in the lower extremities, Pt denies, anesthesia, burning, paresthesia, tingling, B/L Orthopedic FOOTWEAR: shoe gear proper ties exacerbate patients foot/toe deformity DIGITAL DEFORMITIES: Digital contracture , PIPJ, 2-5 B/L, incompl-reducible with WB, or to push-up test, no over, nor underlapping, Reveals pain/swelling/redness/enlargement of PIPJ/DIPJ 2nd and 3rd left General Examination GENERAL APPEARANCE: Reveals a pleasant, alert, well nourished, well-developed, well hydrated individual, who demonstrates proper attention to hygiene/body habitus, and is in no acute distress, Pt serves as own historian for office visit today ORIENTED: person, place, and t amol Vascular DP PULSES (B): 2/4, B/L PT PULSES (B): 2/4, B/L CAPILLARY FILL TIME: immediate, all digi ts, B/L TEMPERTURE GRADIENT (C): decreased, cool to cool, proximal to distal, B/L TROPHIC CONDITION-TEXTURE/ELASTICITY/TURGOR/HAIR GROWTH (B): normal, B/L EDEMA (C): 1/4 2nd, 3rd digits left PIGMENTATION: cyanotic distal toes left Nails NAILS are: Elongated, overg rown, dystrophic, lytic, greater than 3mm thick, discolored and friable with crumbly malodorous subungual debris, with pain on palpation X-Rays - IMAGING REPORT Findings: normal b one and soft tissue density consistent for patients age and sex Fracture: Negative fractures i dentified Digits: show asymmetrical angela int space narrowing at the PIPJ consistent with clinical finding of hammertoe deformity,show flattening of the MTH with asymmetrical joint space narrowing,2nd digit,3rd digit Views: 3 views of Foot, AP, LO, MO, LEFT Taken by trained Podiatric Wafer Line Worker ( SF ) Clinical Indication(s): Evaluate Biomech anical Deformity
--- OUTSIDE RECORDS SUMMARY | 2024-11-07 11:31 | XMS_ITS | Encounter Summary ---
Author Organization [facility] Address [address] [place] [address] Phone Care Team Providers Care Operations Technician Name Role Phone Carlos A Rice MD Primary Care Provider [phone] Encounter Details Date Type Department Care Team (Late st Contact Info) Description 05/25/2020 Procedure Pass [facility]oscopy Admitting Dept Virtual Department [address] [place] [address] Social History Tobacco Use Types Packs/Day Years [...] on filedocumented in this encounter Care Teams Operations Technician Relationship Specialty Start Date End Date Carlos A Rice MD PCP - General Internal Medicine 06/21/18 documented as of this encounter Additional Source Comments The information contained in this document represents components of the legal health record. It is not the complete legal health record.[facility]
--- OUTSIDE RECORDS SUMMARY | 2024-11-07 11:31 | XMS_ITS | Encounter Summary ---
Author Organization [facility] Address [address] [place] [address] [place] [address] Phone Care Team Providers Care Lead Sewage Plant Operator Name Role Phone Carlos A Rice MD Primary Care Provider [phone] Encounter Details Date Type Department Care Team (Latest Contact Info) Description 05/28/2019 Transcribe Orders [facility] [address] [place] [id number] Corey Quintana MD [address] [place] [id number] [email or web address] Familial hemochromatosis (Primary Dx) Social History Tobacco [...] EDT) FERRITIN 89 30 - 400 ug/L [facility] Blood 05/28/2019 10:4 1 AM EDT 05/28/2019 10:54 AM EDT Corey Quintana MD LAB BLOOD ORDERABLES [address] [address] * LFTs (hepatic panel) (05/28/2019 10:41 AM EDT) ALKALINE PHOSPHATASE 105 39 - 117 U/L [facility] TOTAL BILIRUBIN 0.3 0.0 - 1.2 mg/dL [facility] DIRECT BILIRUBIN <0.2 0 - 0.3 mg/dL [facility] Bilirubin (Indirect) NOT CALCULATED 0 - 1.5 mg/dL [facility] AST 24 0 - 37 U/L [facility] ALT 28 0 - 40 U/L [facility] TOTAL PROTEIN 7.0 6.5 - 8.0 g/dL [facility] ALBUMIN 4.4 3.9 - 4.8 g/dL [facility] GLOBULIN 2.6 1 - 4.8 g/dL [facility] A/G Ratio 1.69 1.00 - 4.80 RATIO [facility] Blood 05/28/2019 10:4 1 AM EDT 05/28/2019 10:54 AM EDT Corey Quintana MD LAB BLOOD ORDERABLES Performing Organization Address City/State/[facility] Co de Phone Number [address] [address] * (ABNORMAL) CBC (05/28/2019 10:41 AM EDT) WBC 6.54 3.40 - 11.20 K/uL [facility] RBC 4.48(L) 4.50 - 5.50 M/uL [facility] HGB 14.7 13.0 - 17.0 g/dL [facility] HCT 42.0 40.0 - 51.0 % [facility] PLT 280 130 - 400 K/uL [facility] MCV 93.8 79.0 - 98.0 fL [facility] MCH 32.8 27.0 - 34.8 pg [facility] MCHC 35.0 31.5 - 36.0 g/dL [facility] RDW 11.4 10.8 - 14.6 % [facility] MPV 9.6 9.4 - 12.4 fl [facility] NRBC 0.00 0.00 /100 WBCs [facility] ABSOLUTE NRBC 0.00 0.00 K/uL [facility] Blood 05/28/2019 10:4 1 AM EDT 05/28/2019 10:54 AM EDT Corey Quintana MD LAB BLOOD ORDERABLES [facility] [address] [place] [address] documented in this encounter Visit Diagnoses Diagnosis 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 It is not the complete legal health record.[facility]
== END 2024-11-07 09:56 | disposition home or self-care (01) ==
LOC: HO.BBR 09:55
PROVIDERS: PCP Internal Medicine; Visit Provider Internal Medicine Gastroenterology
DX: Z13.89 Encounter for screening for other disorder (principal)

== ENCOUNTER 2025-02-11 18:09 | Emergency (ER) | payer OTHER, SELFPAY ==
--- NOTE | ~2025-02-11 | CT_ITS ---
CLINICAL HISTORY: dizzy --- Additional Notes or Special Instructions: has non-con CT head already tod ay CT angiography head and neck with contrast. 3D Postprocessing. Comparison: CT/SR - CT HEAD/BRAIN WO IV CON - 02/11/25 19:35 EDT Findings: Aortic arch is not included in the field of view. Visualized cervical great vessels are patent with no aneurysm, dissection, hemodynamically significant stenoses, or occlusion. Intracranial arteries are patent. Distal basilar artery is diminutive. origin to the right posterior cerebral artery. No aneurysm, dissection, hemodynamically significant stenoses, or occlusion. No abnormal intracranial enhancement. The visualized thyroid gland is unremarkable. No cervical mass or fluid collection. Lung apices clear. No acute fracture. IMPRESSION: No large vessel occlusion or hemodynamically significant stenosis identified. This document has been electronically signed by: Favian Coello MD on 02/12/2025 05:04:01
--- NOTE | ~2025-02-11 | MR_ITS ---
EXAMINATION: MR BRAIN WITHOUT CONTRAST CLINICAL INFORMATION: Difficulty walking. COMPARISON: Correlated to CT and CT angiogram brain dated February 11 and February 12, 2025. TECHNIQUE: MRI of the brain was obtained using routine sequences without contrast. FINDINGS: No restricted diffusion. No acute intracranial hemorrhage, mass effect, midline shift, hydrocephalus or herniation. Ashby-white matter differentiation is normal. Posterior cranial fossa contents demonstrated no acute intracranial hemorrhage or mass effect. Sellar/suprasellar region demonstrated no signal abnormality or masses. Craniocervical junction demonstrates normal position of the cerebellar tonsils. Flow-void signal within the main cerebral vessels is normal. MR/MR head/brain wo con IMPRESSION: No acute stroke/nonhemorrhagic ischemia or acute brain abnormality. Electronically signed by: Ulysses Purdy MD 02/12/2025 08:11 AM EDT
--- NOTE | ~2025-02-11 | CT_ITS ---
CLINICAL HISTORY: Dizziness CT head without contrast Comparison: None Findings: No intra-axial mass, midline shift, hydrocephalus, or acute hemorrhage. No significant atrophy-like change or white matter disease. There is no sinus or mastoid fluid. No acute findings in the orbits. There is no acute fracture. IMPRESSION: 1. No acute intracranial findings. This document has been electronically signed by: Mich Burrows MD on 02/11/2025 20:34:35
[2025-02-11 19:28] VITALS: BP 150/89; PULSE 76; RESP 16; TEMP 36.6; O2SAT 96; BMI 27.9
--- NOTE | 2025-02-11 19:30 | ED_ITS ---
HPI - General Adult General Chief complaint: Dizziness Stated complaint: Dizziness Time Seen by Provider: 02/12/25 02:00 Source: patient Limitations: no limitations History of Present Illness ED Provider: Elissa Grimm PA-C HPI narrative: 55-year-old male with a history of hypertension, hyperlipidemia and prediabetes, presents with dizziness for over 24 hours. Patient noted gait instability yesterday when he woke from sleep, he described it as ?as if he were drunk?. Patient states position changes elicit dizziness and cause nausea at times. Movement of the eyes does not cause dizziness or nausea. He denies history of vertigo. Denies headache. Denies new head trauma or use of blood thinners. Patient denies inner ear pain or fullness. Related Data Previous Rx's ?Medication ?Instructions ?Recorded meclizine 25 mg tablet 25 mg PO QID PRN dizziness #14 tabs 02/12/25 Allergies Allergy/AdvReac Type Severity Reaction Status Date / Time Seasonal Allergies Allergy Intermediate Runny Nose Verified 02/11/25 19:30 Review of Systems 2 Review of Systems: Yes all other systems are reviewed and are negative Constitutional: Constitutional: Denies fatigue, Denies fever(s) and Denies headache(s) Eyes: Eyes: Denies change in vision ENT: Denies vertigo, Denies dizziness, Denies otalgia, Denies headache(s), Denies nasal congestion and Reports nasal discharge Cardiovascular: Cardiovascular: Denies chest pain and Denies dyspnea Respiratory: Respiratory: Denies cough and Denies dyspnea Gastrointestinal: Gastrointestinal: Denies abdominal pain and Denies vomiting Neurologic: Denies vertigo, Denies dizziness and Denies headache(s) Endocrine: Endocrine: Denies fatigue [facility] Past Medical History Attestation statement: The following information was validated with the patient. Physical Exam ED Vital Signs: Vital Signs - 24 hr 02/11/25 19:28 02/12/25 03:03 02/12/25 05:32 Temperature 98 F 97.4 F 97.0 F Pulse Rate 76 53 60 Respiratory Rate 16 20 18 Blood Pressure 150/89 H 138/77 135/72 Pulse Oximetry 96 98 99 Oxygen Delivery Method Room Air Room Air Room Air 02/12/25 08:11 Temperature 98.2 F Pulse Rate 61 Respiratory Rate 18 Blood Pressure 143/83 H Pulse Oximetry 98 Oxygen Delivery Method Room Air BMI result Body Mass Index 27.9 Const Other: Alert well-appearing Orientation/consciousness: patient oriented x3 Eyes Other: No nystagmus noted Resp Effort & Inspection: normal respiratory effort Cardio Other: Normal peripheral perfusion Skin Other: Warm dry no rash Neuro Other: No ataxia noted at this time General: patient oriented x3, gait normal, no focal motor deficits and CN's II- XI intact bilaterally NIH Stroke Scale Time: 02:41 Level of Consciousness: Alert Level of Consciousness Questions: Answers both questions correctly Level of Consciousness Commands: Performs both tasks correctly Best Gaze: Normal Visual: No visual loss Facial Palsy: Normal Motor Arm (Right): No drift Motor Arm (Left): No drift Motor Leg (Right): No drift Motor Leg (Left): No drift Limb Ataxia: Absent Sensory: Normal Best Language: No aphasia Dysarthia: Normal Extinction and Inattention: No abnormality Score: 0 Course Course Course Narrative: RME: 55 yold male presents to the ED for dizzinesss described as room spinning since 1am. Patient denies any slurred speech, facial droop, paralysis of extremities. NIH score is 0. Positive for horizontal nystagmus to the left. Negative for any Romberg sign on exam. We will order dry head CT, labs, EKG, troponin. No signs of large vessel occlusion. Reevaluation(s) Reevaluation #1: Signed out to night team pending imaging and final disposition Reevaluation #2: Dr. Chadwick: I assumed care of this patient pending the results of a CT angiogram of the head and neck. The patient is a 55-year-old male who presented with a proximally 12 hours of dizziness and difficulty walking. The CT angiogram of the head and neck was negative. The patient had previously had a negative noncontrast head CT of the head. The patient describes having vertigo that sounds primarily as if it is positional. His physical exam was fairly reassuring. He only had some minimal difficulty walking. There was no nystagmus however. The patient has stroke risk factors. He has a long history of hypertension. He also believes he is a borderline diabetic. Additionally has a history of hemochromatosis. Clinically I thought this was probably positional vertigo. I explained this to the patient but also discussed possibly getting an MRI to be certain that there was no stroke causing his difficulty walking. The patient requested that he stay in the emergency room for an MRI. This was done. The MRI was negative. The patient will then be discharged on meclizine. Time: 08:35 Medications Administered Discontinued Medications Generic Name Dose Route Start Last Admin Trade Name Shashank PRN Reason Stop Dose Admin Sodium Chloride 1,000 mls @ 999 mls/hr 02/12/25 02:45 02/12/25 04:05 Ns IV 02/12/25 03:45 Infused .Q1H1M JAMILA Infusion Iohexol 75 ml 02/12/25 04:46 02/12/25 04:48 Iohexol 350 Mg/Ml 100 Ml Infus..Btl IV 02/12/25 04:47 75 ml ONCE ONE Administration Meclizine HCl 50 mg 02/12/25 02:41 02/12/25 02:54 Meclizine Hcl 25 Mg Tablet PO 02/12/25 02:42 50 mg ONCE ONE Administration Medical Decision Making Medical Decision Making MDM Narrative: 55-year-old male with a history of hypertension, hyperlipidemia and prediabetes, presents with dizziness for over 24 hours. Patient noted gait instability yesterday when he woke from sleep, he described it as ?as if he were drunk?. Patient states position changes elicit dizziness and cause nausea at times. Movement of the eyes does not cause dizziness or nausea. He denies history of vertigo. Denies headache. Denies new head trauma or use of blood thinners. Patient denies inner ear pain or fullness. Problem: Hypertension, hyperlipidemia, prediabetes History: Per patient I have considered the following differential diagnoses: Dehydration, anemia, electrolyte abnormality, labyrinthitis, vertigo, posterior circulation CVA , new arrhythmia Plan: Screening labs were already obtained from triage and are unremarkable, a CT non con of the brain was ordered from triage and a CT of the cervical spine unclear why, those imaging studies are negative for acute process. His exam was not consistent with vertigo, I am concerned for posterior circulation CVA, ordering angiograms of the head and neck. I will trial meclizine and IV fluid. I did view the inner ear, he is not having evidence of serous otitis to suggest labyrinthitis. I have independently reviewed the following tests: Labs: No leukocytosis, not anemic, no electrolyte abnormality, troponin < 2.7 EKG: Normal sinus rhythm, rate of 75, no ischemic changes no ectopy QTC 402 CT cervical spine: CT/CT cervical spine wo IV con IMPRESSION: Cervical spondylosis C5-6 without acute fracture or trauma-related listhesis. If patient's symptoms persist recommend noncontrast MRI cervical spine. Fleischner guidelines were followed. CT brain:Findings: No intra-axial mass, midline shift, hydrocephalus, or acute hemorrhage. No significant atrophy-like change or white matter disease. There is no sinus or mastoid fluid. No acute findings in the orbits. There is no acute fracture. IMPRESSION: 1. No acute intracranial findings. Lab Data 02/11/25 20:54 02/11/25 20:54 Labs: Lab Results 02/11/25 Range/Units 20:54 WBC 10.1 (4.8-10.8) X10*3/uL RBC 5.10 (4.60-5.80) X10*6/uL Hgb 16.8 (14.0-18.0) g/dl Hct 47.9 (42.0-52.0) % MCV 93.9 (80.0-98.0) fL MCH 32.9 (27.0-33.0) pg MCHC 35.1 (31.0-36.0) g/dl RDW 11.5 (11.0-16.0) % Plt Count 259 (160-400) X10*3/uL MPV 9.2 L (9.4-12.4) fL Immature Gran % (Auto) 0.5 H (0.0-0.4) % Neut % (Auto) 67.3 (45-73) % Lymph % (Auto) 20.6 (20-40) % Carson % (Auto) 10.7 (2-11) % Eos % (Auto) 0.6 (0-4) % Baso % (Auto) 0.3 (0-2) % Lymph # (Auto) 2.1 (1.2-4.9) X10*3/uL Carson # (Auto) 1.1 (0.1-1.2) X10*3/uL Eos # (Auto) 0.1 (0.0-0.4) X10*3/uL Baso # (Auto) 0.0 (0.0-0.2) X10*3/uL Abs Immat Gran (auto) 0.05 H (0.00-0.03) X10*3/uL Absolute Neuts (auto) 6.8 (2.0-8.3) x10*3/uL Absolute Nucleated RBC 0.000 (0.0-0.012) X10*3/uL Nucleated RBC % (auto) 0.0 (0.0-0.2) /100WBC PT 11.3 (10.9-12.4) SEC INR 1.0 (0.9-1.1) APTT 33.1 (26.0-36.8) SEC Sodium 140 (135-145) mmol/L Potassium 4.7 (3.3-5.1) mmol/L Chloride 105 (96-108) mmol/L Carbon Dioxide 28 (22-29) mmol/L Anion Gap 12 (12-20) BUN 16 (9-16) mg/dL Creatinine 0.87 (0.5-1.4) mg/dL Estim Creat Clear Calc 107.2 Estimated GFR > 60 Random Glucose 119 H (60-115) mg/dL Calcium 10.0 (8.4-10.2) mg/dL Total Bilirubin 0.5 (0.0-1.0) mg/dL AST 24 (5-37) U/L ALT 38 (0-40) U/L Alkaline Phosphatase 113 (39-117) U/L Troponin I High Sens < 2.7 (<3.5-35.0) ng/L Total Protein 8.0 (6.5-8.0) g/dL Albumin 5.0 (3.5-5.0) g/dL Discharge Plan Discharge Clinical Impression: Benign positional vertigo Patient Disposition: Home, Self-Care Instructions: Vertigo (ED), Benign Paroxysmal Positional Vertigo (ED) Additional Instructions: Since your MRI does not show any sign of a stroke it seems that the vertigo symptoms you has been experiencing are likely coming from a problem of function of your in her ear. We call this positional vertigo. You may use the meclizine prescribed as needed. I would also recommend contacting your primary care doctor for a possible referral to a physical therapist. Physical therapist can perform additional exercises which can help with vertigo symptoms. Therefore please call your primary care doctor today to arrange a follow up for this visit and to possibly arrange physical therapy as well. You may use the meclizine prescribed as needed. Return to the emergency room if significantly worse. Prescriptions: New meclizine 25 mg tablet 25 mg PO QID PRN (Reason: dizziness) Qty: 14 0RF Referrals: Carlos A Rice MD [Primary Care Provider] - Interventions: ED Discharge Assessment Last Done: 02/12/25 10:38 Discharge Date/Time: 02/12/25 10:39 Print Language: Bulgarian
--- NOTE | 2025-02-11 19:32 | ECG_ITS ---
Test Reason : DIZZINESS Blood Pressure : */* mmHG Vent. Rate : 75 BPM Atrial Rate : 75 BPM P-R Int : 190 ms QRS Dur : 86 ms QT Int : 360 ms P-R-T Axes : 35 34 16 degrees QTcB Int : 402 ms Normal sinus rhythm Normal ECG When compared with ECG of 03-Nov-2006 00:29, No significant changes seen Referred By: Stephen Pitt Electronically Signed By: YOLANDA GUAJARDO MD
[2025-02-11 21:07] LABS: MANUAL DIFF FLAG NO
[2025-02-11 21:08] LABS: Basophils Percent Auto 0.3 % (0-2); Eosinophils Absolute Auto 0.1 X10*3/uL (0.0-0.4); Eosinophils Percent Auto 0.6 % (0-4); Hematocrit 47.9 % (42.0-52.0); Hemoglobin 16.8 g/dl (14.0-18.0); Imm Gran Abs Auto 0.05 X10*3/uL (0.00-0.03); Imm Gran Pct Auto 0.5 % (0.0-0.4); Lymphocytes Absolute Auto 2.1 X10*3/uL (1.2-4.9); Lymphocytes Percent Auto 20.6 % (20-40); Mean Corpuscular HGB Conc 35.1 g/dl (31.0-36.0); Mean Corpuscular Hemoglobin 32.9 pg (27.0-33.0); Mean Corpuscular Volume 93.9 fL (80.0-98.0); Mean Platelet Volume 9.2 fL (9.4-12.4); Monocytes Absolute Auto 1.1 X10*3/uL (0.1-1.2); Monocytes Percent Auto 10.7 % (2-11); Neutrophils Absolute Auto 6.8 x10*3/uL (2.0-8.3); Neutrophils Percent Auto 67.3 % (45-73); Platelet Count 259 X10*3/uL (160-400); Red Cell Distribution Width 11.5 % (11.0-16.0); White Blood Count 10.1 X10*3/uL (4.8-10.8)
[2025-02-11 21:18] LABS: Prothrombin Time 11.3 SEC (10.9-12.4)
[2025-02-11 21:21] LABS: Alanine Aminotransferase 38 U/L (0-40); Alkaline Phosphatase 113 U/L (39-117); Anion Gap 12 (12-20); Aspartate Amino Transferase 24 U/L (5-37); Bilirubin Total 0.5 mg/dL (0.0-1.0); Blood Urea Nitrogen 16 mg/dL (9-16); Carbon Dioxide 28 mmol/L (22-29); Chloride 105 mmol/L (96-108); Creatinine Clr Calc Pharmacy 107.2; Estimated Glomerular Filt Rate > 60; Glucose Random 119 mg/dL (60-115); Partial Thromboplastin Time 33.1 SEC (26.0-36.8); Potassium 4.7 mmol/L (3.3-5.1); Sodium 140 mmol/L (135-145)
[2025-02-11 21:29] LABS: Troponin-I High Sensitivity < 2.7 ng/L (<3.5-35.0)
--- NOTE | 2025-02-12 02:37 | PC.NURSE ---
provider into assess pt and discuss plan of care.
[2025-02-12] MEDS: Meclizine HCl 25 MG TABLET 50 MG PO (02:54)
[2025-02-12] MEDS: 0.9 % Sodium Chloride 1,000 ML 999 ML IV (02:55)
--- NOTE | 2025-02-12 02:56 | PC.NURSE ---
Medicated per mar, Iv placed.
[2025-02-12 03:03] VITALS: BP 138/77; PULSE 53; RESP 20; TEMP 36.3; O2SAT 98
--- NOTE | 2025-02-12 03:58 | PC.NURSE ---
pt a&o, neruo intact, speech is clear, pt reports some improvement after being medicated.
--- NOTE | 2025-02-12 04:27 | PC.NURSE ---
Pt returned from CT SCan
[2025-02-12] MEDS: iohexoL 350 MG/ML 100 ML INFUS..BTL 75 ML IV (04:48)
[2025-02-12 05:32] VITALS: BP 135/72; PULSE 60; RESP 18; TEMP 36.1; O2SAT 99
--- NOTE | 2025-02-12 06:02 | PC.NURSE ---
Plan is for MRI this morning.
[2025-02-12 08:11] VITALS: BP 143/83; PULSE 61; RESP 18; TEMP 36.8; O2SAT 98
[2025-02-12 10:24] VITALS: BP 135/88; PULSE 61; RESP 18; TEMP 36.1; O2SAT 97
[2025-02-12 10:38] VITALS: BP 135/88; PULSE 61; RESP 18; TEMP 36.1; O2SAT 97
== END 2025-02-12 10:39 | disposition home or self-care (01) ==
PROVIDERS: Physician Assistant; Emergency Provider Emergency Medicine; PCP Internal Medicine
DX: H81.10 Benign paroxysmal vertigo, unspecified ear (principal); R26.89 Other abnormalities of gait and mobility; R29.700 NIHSS score 0; E11.9 Type 2 diabetes mellitus without complications; I10 Essential (primary) hypertension; E78.5 Hyperlipidemia, unspecified
CPT/HCPCS: 36415; 70450; 70496; 70498; 70551; 80053; 84484; 85025; 85610; 85730; 93005; 96360; 99285; Q9967

== ENCOUNTER → 2025-02-11 19:32 | Outpatient (BNV) | payer OTHER, SELFPAY | PROVIDERS: PCP Internal Medicine; Visit Provider Radiology Diagnostic Radiology | DX: R42 Dizziness and giddiness (principal) | CPT/HCPCS: 70450 ==

== ENCOUNTER → 2025-02-11 19:32 | Outpatient (BNV) | payer OTHER, SELFPAY | PROVIDERS: Emergency Provider Emergency Medicine; PCP Internal Medicine; Visit Provider Internal Medicine Cardiovascular Disease | DX: R42 Dizziness and giddiness (principal) | CPT/HCPCS: 93010 ==

== ENCOUNTER → 2025-02-12 02:41 | Outpatient (BNV) | payer OTHER, SELFPAY | PROVIDERS: Emergency Provider Emergency Medicine; PCP Internal Medicine; Visit Provider Radiology Diagnostic Radiology | DX: R42 Dizziness and giddiness (principal); R26.2 Difficulty in walking, not elsewhere classified | CPT/HCPCS: 70496; 70498; 70551 ==

== ENCOUNTER 2025-02-13 09:50 | Outpatient (REF) | payer OTHER, SELFPAY ==
--- OUTSIDE RECORDS SUMMARY | 2025-02-13 11:06 | XMS_ITS | Data Portability ---
Author Organization [facility] Address [address] [facility] [address] [facility] [place] [address] Care Team Providers Care Mailroom Assistant Name Role Phone DANY RONDON Primary Care Provider [phone] Assessment Encounter Date Assessment Date Assessment LastModified [...] booked for the same. 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 Patient TargetsNo targets recorded. Patient Instructions Encounter Date Encounter Id Patient Instructions Last Modified By Organization Details Last Modified Time 12/13/2018 [id number] He was advised against bed rest lasting longer than four days and to continue activities as tolerated. [email or web address] Not available 12/15/2018 10:17:03 01/08/2019 [id number] He was advised against bed rest lasting longer than four days and to continue activities as tolerated. [email or web address] Not available 01/09/2019 15:56:51 04/09/2019 [id number] He was advised against bed rest lasting longer than four days and to continue activities as tolerated. [email or web address] Not available 04/09/2019 15:11:31 05/06/2021 [id number] He was advised against bed rest lasting longer than four days and to continue activities as tolerated. [email or web address] Not available 05/06/2021 10:59:09 06/22/2021 [id number] He was advised against bed rest lasting longer than four days and to continue activities as tolerated. [email or web address] Not available 06/22/2021 11:55:38 Reason for Referral None Reported. Results Created Date Observation Date Name Description Value Unit Range Abnormal Flag Note LastModifiedBy Organization Detail LastModifiedTime 04/17/2004/16/2019 MRI, cervi patricia spine , w/o contr ast No observ ation record ed. [email or web address] [facility] [address], [address], 06/06/2019 10:52:26 Result Notes None recorded. Problems Name Problem SNOMED Code Status Onset Date Resolution Date Notes Provider Name and Address Organization Details Recorded Time Muscle pain [id number] Sunil serrano MD [address] , [address], [place], [address], [place] [facility] 6 09:41:15 Degeneration of cervical intervertebral disc 94992953 Sunil serrano MD [address] , [address], [place], [address], [place] [facility] 6 09:41:15 Spinal stenosis in cervical region 88353590 Active Papo serrano MD [address] , [address], [place], [address], [place] [facility] 6 09:41:15 Cervical radiculopathy 99693103 Active Papo serrano MD [address] , [address], [place], [address], [place] [facility] 6 09:41:15 Problem Notes None recorded. Procedures Surgical History Date Name Laterality Status Provider Name and Address Organization Details Recorded Time 06/22/20 21 Cervical Epidural Steroid injection under fluroscopic guidance completed Papo Nevarez MD [address] , [address], [place], [address], [place] [facility] 06/22/2021 11:56:29 04/09/20 19 Cervical Epidural Steroid injection under fluroscopic guidance completed Papo Nevarez MD [address] , [address], [place], [address], [place] [facility] 04/09/2019 15:12:26 01/09/20 19 Cervical Epidural Steroid injection under fluroscopic guidance completed Papo Nevarez MD [address] , [address], [place], [address], [place] [facility] 01/09/2019 15:57:53 03/21/20 18 Cervical Epidural Steroid injection under fluroscopic guidance completed Papo Nevarez MD [address] , [address], [place], [address], [place] [facility] 03/21/2018 13:56:24 01/25/20 18 Cervical Epidural Steroid injection under fluroscopic guidance completed Papo Nevarez MD [address] , [address], [place], [address], [place] [facility] 01/24/2018 10:15:06 01/11/20 17 Cervical Epidural Steroid injection under fluroscopic guidance completed Papo Nevarez MD [address] , [address], [place], [address], [place] [facility] 01/11/2017 15:35:32 04/26/20 16 Cervical Epidural Steroid injection under fluroscopic guidance completed Papo Nevarez MD [address] [facility] , [address], [place], [address], [place] [facility] 04/28/2016 13:45:32 Arthroscopic Surgery completed Papo Nevarez MD [address] [facility] , [address], [place], [address], [place] [facility] 04/01/2016 11:19:26 Appendectomy completed Papo Nevarez MD [address] [facility] , [address], [place], [address], [place] [facility] 04/01/2016 11:20:57 Imaging Results None recorded. Procedure Notes None recorded. Medical Equipment None [...] Available Not Available Not Available Fluarix Quad 0825-2270 (PF) 60 mcg (15 mcg x 4)/0.5 [...] 97 % 151 mm[Hg] 87 mm[Hg] Lilia Lott [facility] 9 11:37:12 Date Recorded Body height Body mass index (BMI) Body weight Heart rate Oxygen saturation Oxygen saturation in Arterial blood by Pulse oximetry Systolic blood pressure Diastolic blood pressure Provider Name and Address Organization Details Last Updated DateTime 9 177.8 cm 28 kg/m2 05565.5 1 g 75 /min 97 % 97 % 136 mm[Hg] 80 mm[Hg] Papo serrano MD [address] [facility] , [address], [facility] [place], [address], [place] [facility] 9 14:39:52 Date Recorded Heart rate Oxygen saturation Oxygen saturation in Arterial blood by Pulse oximetry Systolic blood pressure Diastolic blood pressure Provider Name and Address Organization Details Last Updated DateTime 1 57 /min 96 % 96 % 131 mm[Hg] 72 mm[Hg] Karina Santillan [facility] 1 10:23:41 Date Recorded Heart rate Oxygen saturation Oxygen saturation in Arterial blood by Pulse oximetry Systolic blood pressure Diastolic blood pressure Provider Name and Address Organization Details Last Updated DateTime 1 66 /min 97 % 97 % 131 mm[Hg] 77 mm[Hg] Karina Santillan [place] [facility] 1 11:28:36 Social History Question Answer Notes LastModified by [employer] Details LastModified Time Tobacco Smoking Status Former Smoker quit 20 years ago Not Available [employer] 06/19/2020 03:16:10 Which Illicit Or Recreational Drugs Have You Used? None [id number] Information not available 06/19/2020 Education 4 Year College Business Degree [employer] Information not available 04/01/2016 Live Alone Or With Others? With Others Information not available 04/01/2016 Marital Status Informati on not available 04/01/2016 What Was The Date Of Your Most Recent Tobacco Screening? 01/09/2019 [id number] Information not available 06/19/2020 Sex: Unknown Functional Status Question Answer Note LastModified by [facility] [facility] [employer] Details LastModified Time What is your level of alcohol consumption? 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 Family History Relationship [...] SNOMED-CT Code Diagnosis ICD10 Code Diagnosis Note [id number] Papo Nevarez MD PAIN OFFICE [address] [facility] [place] [address] 04/01/2016 10:57:00 04/05/2016 09:01:13 Cervical radiculopathy 08398540 M54.12 Degenerati on of cervical intervertebral disc 59232171 M50.32 Muscle pain 12982409 M79 .1 Spinal beau nosis in cervical region 03501161 M48.02 05114 Papo Nevarez MD PAIN OFFICE [address] [facility] [place] [address] 04/26/2016 15:00:12 04/27/2016 09:41:49 Cervical radiculopathy 59951475 M54.12 Muscle pain 11204868 M79 .1 Degenerati on of cervical intervertebral disc 92659228 M50.32 Spinal beau nosis in cervical region 30242696 M48.02 18847 Papo Nevarez MD PAIN OFFICE [address] [facility] [place] [address] 05/23/2016 10:13:31 05/23/2016 14:52:23 Cervical radiculopathy 28119775 M54.12 Muscle pain 12334539 M79 .1 Degenerati on of cervical intervertebral disc 36443691 M50.32 Spinal beau nosis in cervical region 20233553 M48.02 87450 Papo Nevarez MD PAIN OFFICE [address] [facility] [place] [address] 12/28/2016 13:10:08 12/28/2016 15:36:18 Cervical radiculopathy 59561930 M54.12 Degenerati on of cervical intervertebral disc 49870772 M50.322 Muscle pain 56197163 M79 .1 Spinal beau nosis in cervical region 63580796 M48.02 14659 Papo Nevarez MD [facility] PA[facility]ICE [address] [facility] [place] [address] 01/10/2017 14:38:49 01/11/2017 15:37:48 Cervical radiculopathy 60926754 M54.12 Muscle pain 30532721 M79 .1 Degenerati on of cervical intervertebral disc 07945296 M50.322 Spinal beau nosis in cervical region 19561587 M48.02 65397 Papo Nevarez MD PAIN OFFICE [address] [facility] [place] [address] 12/29/2017 10:28:38 01/01/2018 08:54:34 Cervical radiculopathy 26833577 M54.12 Degenerati on of cervical intervertebral disc 42244772 M50.322 Muscle pain 88381452 M79 .1 Spinal beau nosis in cervical region 27905012 M48.02 07478 Papo Nevarez MD PAIN OFFICE [address] [facility] [place] [place] [address] 01/24/2018 08:45:01 01/24/2018 13:34:53 Cervical radiculopathy 24989508 M54.12 Muscle pain 63279055 M79 .1 Degenerati on of cervical intervertebral disc 85706321 M50.322 Spinal beau nosis in cervical region 66896698 M48.02 94551 Papo Nevarez MD PAIN OFFICE [address] [facility] [place] [place] [address] 03/21/2018 10:21:26 03/21/2018 14:00:12 Cervical radiculopathy 20702335 M54.12 Muscle pain 60514986 M79 .1 Degenerati on of cervical intervertebral disc 24940542 M50.322 Spinal beau nosis in cervical region 65043115 M48.02 33186 Papo Nevarez MD PAIN OFFICE [address] [facility] [place] [address] 12/13/2018 15:25:03 12/15/2018 10:18:21 Cervical radiculopathy 47992209 M54.12 Degenerati on of cervical intervertebral disc 90562970 M50.322 Muscle pain 67414603 M79 .18 Spinal beau nosis in cervical region 65056629 M48.02 01668 Papo Nevarez MD PAIN OFFICE [address] [place] [address] 01/08/2019 11:27:46 01/09/2019 16:00:26 Cervical radiculopathy 93452051 M54.12 Muscle pain 57115042 M79 .18 Degenerati on of cervical intervertebral disc 12713017 M50.322 Spinal beau nosis in cervical region 65135091 M48.02 18624 Papo Nevarez MD PAIN OFFICE [address] [place] [address] 04/09/2019 14:16:48 04/09/2019 15:15:21 Cervical radiculopathy 17785040 M54.12 Muscle pain 50032499 M79 .18 Degenerati on of cervical intervertebral disc 56379477 M50.322 Spinal beau nosis in cervical region 54024759 M48.02 86661 Papo Nevarez MD PAIN OFFICE [address] [place] [address] 05/06/2021 10:16:23 05/06/2021 11:10:47 Cervical radiculopathy 41632362 M54.12 Degenerati on of cervical intervertebral disc 88634049 M50.322 Muscle pain 53924206 M79 .18 Spinal beau nosis in cervical region 06721519 M48.02 36140 Papo Nevarez MD PAIN OFFICE [address] [place] [address] 06/22/2021 11:23:23 06/22/2021 11:58:56 Cervical radiculopathy 94098644 M54.12 Muscle pain 55821366 M79 .18 Degenerati on of cervical intervertebral disc 89288015 M50.322 Spinal beau nosis in cervical region 36639759 M48.02 Health Concerns Section Related Observation LastModified by Organization Detai ls LastModified Time None Recorded Concern Status LastModified by Organization Details LastModified Time None Recorded Advance Directives Directive None Recorded Payers Insurance Date Sequence Insurance Name Policy Number Policy Oliva Covered Member ID Oliva Member ID Guarantor Name 06/22/2021 1 [facility] [id number] Hugo Phipps [id number] Hugo Phipps 06/22/2021 1 [facility] [id number] Hugo Phipps [id number] Hugo Phipps 06/22/2021 1 [id number] Hugo Phipps [id number] Hugo Phipps 06/22/2021 1 [facility] [id number] Hugo Phipps [id number] Hugo Phipps Notes Date Note Type Note Provider Name [...] or bowel incontinence. Papo Nevarez MD [address] [facility] , [address], [place], [address], [place] [facility] 12/16/2018 16:56:02 01/08/2019 text/html He is here for a repeat cervical epidural steroid injection under fluoroscopic guidance. Papo Nevarez MD [address] [facility] , [address], [place], [address], [place] [facility] 01/11/2019 09:21:55 04/09/2019 text/html He is here for a repeat cervical epidural steroid injection under fluoroscopic guidance. Papo Nevarez MD [address] [facility] , [address], [place], [address], [place] [facility] 04/12/2019 09:01:38 05/06/2021 text/html He [...] or bowel incontinence. Papo Nevarez MD [address] [facility] , [address], [place], [address], [facility] - Pain Management 05/06/2021 11:30:21 06/22/2021 text/html He is here for a repeat cervical epidural steroid injection under fluoroscopic guidance. Papo Nevarez MD [address] [facility] , [address], [place], [address], [facility] - Pain Management 06/23/2021 08:51:31
== END 2025-02-13 09:51 | disposition home or self-care (01) ==
LOC: HO.BBR 09:50
PROVIDERS: PCP Internal Medicine; Visit Provider Internal Medicine Gastroenterology
DX: Z13.89 Encounter for screening for other disorder (principal)

== ENCOUNTER 2025-05-22 09:47 | Outpatient (REF) | payer OTHER, SELFPAY ==
--- OUTSIDE RECORDS SUMMARY | 2025-05-22 11:24 | XMS_ITS | Encounter Summary ---
Author Organization [facility] Address [address] [facility] [address] [place] [address] Phone Care Team Providers Care Wrapper And Preserver Name Role Phone Carlos A Rice MD Primary Care Provider [phone] Encounter Details Date Type Department Care Team (Latest Contact Info) Description 06/21/2018 Transcribe Orders [facility] Laboratory [address] [facility] 2nd [place] [address] Corey Quintana MD 10 [facility] 2 [place] [address] [email or web address] Hereditary hemochromatosis (Primary Dx) Social History Tobacco Use Types Packs/Day Years Used Date Smoking Tobacco: Never Assessed Sex and Gender Information Value Date Recorded Sex Assigned at Not on file Legal Sex Male 9:35 PM EDT Gender Identity Not on file Sexual Orientation Not on file documented as of this encounter Plan of Treatment Not on file documented as of this encounter Results * CBC (06/21/2018 11:25 AM EDT) WBC 5.75 3.40 - 11.20 K/uL [facility] RBC 4.89 4.50 - 5.50 M/uL [facility] HGB 16.3 13.0 - 17.0 g/dL [facility] HCT 45.6 40.0 - 51.0 % [facility] PLT 234 130 - 400 K/uL [facility] MCV 93.3 79.0 - 98.0 fL [facility] MCH 33.3 27.0 - 34.8 pg [facility] MCHC 35.7 31.5 - 36.0 g/dL [facility] RDW 11.4 10.8 - 14.6 % [facility] MPV 9.6 9.4 - 12.4 fl [facility] NRBC 0.00 /100 WBCs [facility] ABSOLUTE NRBC 0.00 K/uL [facility] Blood 06/21/2018 11:2 5 AM EDT 06/21/2018 11:28 AM EDT us Corey Quintana MD LAB BLOOD ORDERABLES Final Res ult Performing Organization Address [facility] Co de Phone Number [address] [address] * Ferritin (06/21/2018 11:25 AM EDT) FERRITIN 121 30 - 400 ug/L [facility] Blood 06/21/2018 11:2 5 AM EDT 06/21/2018 11:28 AM EDT us Corey Quintana MD LAB BLOOD ORDERABLES Final Res ult Performing Organization Address [facility] Co de Phone Number [address] [address] * (ABNORMAL) LFTs (hepatic panel) (06/21/2018 11:25 AM EDT) ALKALINE PHOSPHATASE 132(H) 39 - 117 U/L [facility] TOTAL BILIRUBIN 0.3 0.0 - 1.2 mg/dL [facility] DIRECT BILIRUBIN <0.2 0 - 0.3 mg/dL [facility] Bilirubin (Indirect) NOT CALCULATED 0 - 1.5 mg/dL [facility] AST 25 0 - 37 U/L [facility] ALT 29 0 - 40 U/L [facility] TOTAL PROTEIN 7.1 6.5 - 8.0 g/dL [facility] ALBUMIN 4.6 3.9 - 4.8 g/dL [facility] GLOBULIN 2.5 1 - 4.8 g/dL [facility] A/G Ratio 1.84 1.00 - 4.80 RATIO [facility] Blood 06/21/2018 11:2 5 AM EDT 06/21/2018 11:28 AM EDT us Corey Quintana MD LAB BLOOD ORDERABLES Final Res ult [facility] [address] [place] [address] documented in this encounter Visit Diagnoses Diagnosis Hereditary hemochromatosis- Primary documented in this encounter Care Teams Wrapper And Preserver Relationship Specialty Start Date End Date Carlos A Rice MD [address] [address] PCP - General Internal Medicine 06/21/18 documented as of this encounter Additional Source Comments The information contained in this document represents components of the legal health record. It is not the complete legal health record.[facility]
--- OUTSIDE RECORDS SUMMARY | 2025-05-22 11:24 | XMS_ITS | Encounter Summary ---
Author Organization [facility] Address [address] [place] [address] [place] [address] Phone Care Team Providers Care Risk Reduction Counselor Name Role Phone Carlos A Rice MD Primary Care Provider [phone] Encounter Details Date Type Department Care Team (Latest Contact Info) Description 05/28/2019 Transcribe Orders [facility] Laboratory 10 [facility] 2nd [place] [address] Corey Quintana MD [address] [address] [email or web address] Familial hemochromatosis (Primary Dx) Social History Tobacco [...] EDT) FERRITIN 89 30 - 400 ug/L [facility] Blood 05/28/2019 10:4 1 AM EDT 05/28/2019 10:54 AM EDT us Corey Quintana MD LAB BLOOD ORDERABLES Final Res ult [facility] [address] [place] [address] * LFTs (hepatic panel) (05/28/2019 10:41 AM EDT) ALKALINE PHOSPHATASE 105 39 - 117 U/L [facility] TOTAL BILIRUBIN 0.3 0.0 - 1.2 mg/dL [facility] DIRECT BILIRUBIN <0.2 0 - 0.3 mg/dL [facility] Bilirubin (Indirect) NOT CALCULATED 0 - 1.5 mg/dL [facility] AST 24 0 - 37 U/L [facility] ALT 28 0 - 40 U/L [facility] TOTAL PROTEIN 7.0 6.5 - 8.0 g/dL [facility] ALBUMIN 4.4 3.9 - 4.8 g/dL [facility] GLOBULIN 2.6 1 - 4.8 g/dL [facility] A/G Ratio 1.69 1.00 - 4.80 RATIO [facility] Blood 05/28/2019 10:4 1 AM EDT 05/28/2019 10:54 AM EDT us Corey Quintana MD LAB BLOOD ORDERABLES Final Res ult [facility] [address] [place], [place] [id number] * (ABNORMAL) CBC (05/28/2019 10:41 AM EDT) WBC 6.54 3.40 - 11.20 K/uL [facility] RBC 4.48(L) 4.50 - 5.50 M/uL [facility] HGB 14.7 13.0 - 17.0 g/dL [facility] HCT 42.0 40.0 - 51.0 % [facility] PLT 280 130 - 400 K/uL [facility] MCV 93.8 79.0 - 98.0 fL [facility] MCH 32.8 27.0 - 34.8 pg [facility] MCHC 35.0 31.5 - 36.0 g/dL [facility] RDW 11.4 10.8 - 14.6 % [facility] MPV 9.6 9.4 - 12.4 fl [facility] NRBC 0.00 0.00 /100 WBCs [facility] ABSOLUTE NRBC 0.00 0.00 K/uL [facility] Blood 05/28/2019 10:4 1 AM EDT 05/28/2019 10:54 AM EDT us Corey Quintana MD LAB BLOOD ORDERABLES Final Res ult [facility] [address] [place] [address] documented in this encounter Visit Diagnoses Diagnosis Familial hemochromatosis- Primary Disorders of iron metabolism documented in this encounter Care Teams Risk Reduction Counselor Relationship Specialty Start Date End Date Carlos A Rice MD [address] [place] [address] PCP - General Internal Medicine 06/21/18 documented as of this encounter Additional Source Comments The information contained in this document represents components of the legal health record. It is not the complete legal health record.[facility]
--- OUTSIDE RECORDS SUMMARY | 2025-05-22 11:24 | XMS_ITS | Patient Health Record ---
Author Organization [facility] Chauncey Dalalley Address [address] [place] [address] Care Team Providers Care Assistant Public Defender Name Role Phone Carlos A Rice MD Primary Care Provider Unavailab amada Mary Green Unavailable [phone] Allergies No Known Allergies Results Component Value Reference Range Notes X ray : Foot, left 3V Reviewed date:10/17/2024 12:13:56 PM Interpretation:See Examination above Performing Lab: Notes/Report: See Examination above Reason For Referral No Information Medications Medication SIG (Take, Route, Frequency, Duration) Notes Start Date End Date Status Ciclopirox Olamine 0.77% external Apply to effected areas twice a day; Duration: 30 days 03/29/2016 Not-Takin g Fenofibrate Not-Taki ng amLODIPine Besylate Not-Taking Ciclopirox Olamine 0.77 % 1 application Externally Twice a day; Duration: 30 days Not-Taking Terbinafine HCl 250 MG 1 tablet Orally O nce a day for 7 days days then stop for 3 weeks repeat cycle; Duration: 90 days 10/18/2024 Not-Jeffrey ing Terbinafine HCl 250 MG 1 tablet Orally O nce a day for 7 days days then stop for 3 weeks repeat cycle; Duration: 90 days 05/19/2025 Active Lisinopril 5 MG 1 tablet Orally Once a day; Duration: 30 day(s) Active Vitamin C Not-Taking Tricor Not-Taking Ciclopirox Olamine 0.77% 2 application t o affected area Apply to effected areas BID; Duration: 30 days 10/15/2012 Not-Taking Fish Oil Not-Taking Immunizations Vaccine Route Administration Date Status Comme nts Influenza Unknown 06/04/2019 Administered Influenza Unknown 05/01/2025 Refused COVID-19 Ck & Ck/Srini Unknown 08/19/2021 R efused Social History Tobacco Use: Social History Observation [...] (Standard) Question Answer Notes Tobacco use: Nonsmoker AUDIT-C (Standard) Question Answer Notes Did you have a drink containing alcohol in the p ast year? No Points 0 Interpretation Negative Problems Problem Type SNOMED Code ICD Code Onset Dates Problem Status W/U Status Risk Notes Problem Acquired hammer toe of left foot (5158273856300048) Other hammer toe(s) (acquired), left foot (M20.42) Active confirmed Problem Localized, primary osteoarthritis of the ankle and/or foot (625206300) Arthritis of joint of lesser toe, left (M19.072) Active confirmed Vital Signs Blood pressure diastolic 75 mm Hg 05/01/2025 Height 8mp67xc in 05/01/2025 Blood pressure systolic 132 mm Hg 05/01/2025 Weight 193 lbs 05/01/2025 BMI 27.69 kg/m2 05/01/2025 Encounters Encounter Location Date Provider Diagnosis [facility] [address] 10/17/2024 Mary Black Onychomycosis B35.1 ; Other hammer toe(s) (acquired), left foot M20.42 ; Pain in right toe(s) M79.674 ; Pain in left toe(s) M79.675 ; Arthritis of joint of lesser toe, left M19.072 ; Subluxation of metatarsophalangeal joint of toe, initial encounter S93.149A and Raynaud's disease without gangrene I73.00 [facility] [address] [address] 01/23/2025 Mary Black Onychomycosis B35.1 ; Pain in right toe(s) M79.674 and Pain in left toe(s) M79.[address] [facility] [address] 05/01/2025 Mary Black Onychomycosis B35.1 ; Pain in right toe(s) M79.674 ; Pain in left toe(s) M79.675 ; Other hammer toe(s) (acquired), left foot M20.42 and Subluxation of metatarsophalangeal joint of toe, initial encounter S93.149A [facility] [address] [address] 10/18/2024 Mary Black [facility] [address] 02/21/2025 Mary Black [facility] [address] 05/14/[facility] [address] 05/19/2025 Mary Black Assessments Encounter Date Diagnosis (ICD Code) Assessment Notes Treatment Notes Treatment Clinical Notes Section Notes 10/17/2024 Other hammer toe(s) (acquired), left foot (ICD-10 - M20.42) 10/17/2024 Onychomycosis (ICD-1 0 - B35.1) 01/23/2025 Pain in right toe(s) (ICD-10 - M79.674) 01/23/2025 Onychomycosis (ICD-1 0 - B35.1) 05/01/2025 Pain in right toe(s) (ICD-10 - M79.674) 05/01/2025 Onychomycosis (ICD-1 0 - B35.1) 01/23/2025 Pain in left toe(s) (ICD-10 - M79.675) 05/01/2025 Pain in left toe(s) (ICD-10 - M79.675) 10/17/2024 Pain in right toe(s) (ICD-10 - M79.674) 10/17/2024 Pain in left toe(s) (ICD-10 - M79.675) 05/01/2025 Other hammer toe(s) (acquired), left foot (ICD-10 - M20.42) 10/17/2024 Arthritis of joint o f lesser toe, left (ICD-10 - M19.072) 05/01/2025 Subluxation of metatarsophalangeal joint of toe, initial encounter (ICD-10 - S93.149A) 10/17/2024 Subluxation of metatarsophalangeal joint of toe, initial encounter (ICD-10 - S93.149A) 10/17/2024 Raynaud's disease without gangrene (ICD-10 - I73.00) Plan Of Treatment Pending Test Test Name Order Date *Liver Function Test (LFT) 03/12/2012 *Liver Function Test (LFT) 04/05/2019 *Liver Function Test (LFT) 11/07/2019 *Liver Function Test (LFT) 10/17/2024 *Liver Function Test (LFT) 01/23/2025 *Liver Function Test (LFT) 05/01/2025 *Liver Function Test (LFT) 06/11/2019 [id number] NAIL, 6 OR MORE 08/19/2021 [id number] NAIL, 6 OR MORE 02/17/2022 [id number] NAIL, 1-5 08/19/2021 Next Appt Details Provider Name:Mary Green , 08/14/2025 11:30:00 AM, [address] [place], [address], Insurance Providers Payer Name Payer Address Payer Phone Subscriber Number Group Number Insured Name Patient Relationship to Insured Coverage Start Date Coverage End Date [facility] [address] [place] [address] [phone] [id number] Chelsey Phipps Spouse - patient is the spouse of the insured Medical (General) History Medical History History ICD Code chicken pox high blood pressure hypercholesterolemia Psoriasis/Eczema Sciatica Hemachromatosis Lyme disease Other hammer toe(s) (acquired), left emelina t M20.42 Arthritis of joint of lesser toe, left M 19.072 Raynaud's disease without gangrene I73.0 0 vertigo Surgical History Surgery Date(Month/Year) appendectomy 1984 Right Shoulder 2014 Hospitalization History Reason Date(Month/Year) ER- vertigo 02/09/25
--- OUTSIDE RECORDS SUMMARY | 2025-05-22 11:24 | XMS_ITS | Encounter Summary ---
Author Organization [facility] Address [address] [facility] [address] [place] [address] Phone Care Team Providers Care Infant Childcare Provider Name Role Phone Carlos A Rice MD Primary Care Provider [phone] Encounter Details Date Type Department Care Team (Late st Contact Info) Description 05/25/2020 Procedure Pass [facility] Endoscopy Admitting Dept Virtual Department [address] [place] [address] Social History Tobacco Use Types Packs/Day Years [...] on file documented as of this encounter Functional Status documented as of this encounter Plan of Treatment Not on file documented as of this encounter Visit Diagnoses Not on filedocumented in this encounter Care Teams Infant Childcare Provider Relationship Specialty Start Date End Date Carlos A Rice MD [address] [place] [address] PCP - General Internal Medicine 06/21/18 documented as of this encounter Additional Source Comments The information contained in this document represents components of the legal health record. It is not the complete legal health record.[facility]
--- OUTSIDE RECORDS SUMMARY | 2025-05-22 11:24 | XMS_ITS | Clinical Summary ---
Author Organization [facility] Address [address] [place] [address] [place] [phone] Phone Care Team Providers Care Straightedge Worker Name Role Phone Dany Rondon MD Primary Care Provider [phone] Allergies No known active allergies Medications lisinopril (PRINIVIL,ZESTR IL) 5 MG tablet Take 5 mg by mouth daily. Active omega 6-lne-qpp-fish oil 1,000 mg (120 mg-180 mg) Cap Take 1 capsule by mouth daily. Active Medication-Free Text Tumeric/cucu min Active Social History Tobacco Use Types Packs/Day Years [...] 62 05/25/2020 12:04 PM EDT Temperature 36.3 C (97.3 F) 05/25/2020 12:04 PM EDT Respiratory Rate 12 05/25/2020 12:04 PM EDT Oxygen Saturation 98% 05/25/2020 1:30 PM EDT Inhaled Oxygen Concentration - - Weight 88.5 kg (195 lb) 05/25/2020 12:04 PM EDT Height - - Body Mass Index - - Plan of Treatment Health Maintenance Due Date Last Done Comments Adult Td,Tdap Booster 1970 LIPID PANEL 1970 DEPRESSION SCREENING 1982 HIV ONE-TIME SCREENING (18-6 5 YEARS) 01/30/1988 COLOGUARD 2015 FIT TEST 2015 FOBT 2015 SIGMOIDOSCOPY 2015 VIRTUAL COLONOSCOPY 2015 PNEUMOCOCCAL VACCINES (50+ years) (1 of 1 - PCV) 01/30/2020 ZOSTER VACCINES (1 of 2) 01/30/2020 INFLUENZA VACCINE (#1) 2025 9, 06/07/2017 COVID-19 VACCINE (1 - 2023-2 5 season) 2025 CREATININE LEVEL 10/11/2025 10/11/2024, 09/24/2024 POTASSIUM LEVEL 10/11/2025 10/11/2024, 09/24/2024 COLONOSCOPY 05/25/2030 05/25/2020 COLORECTAL CANCER SCREENING 05/25/2030 SMOKING STATUS SCREENING (On ce After 26 Yrs) Completed 05/25/2020 HEPATITIS C SCREENING Completed 10/11/2024 , 09/24/2024 HEPATITIS A VACCINES Aged Out No long er eligible based on patient's age to complete this topic HIB VACCINES Aged Out No longer eligi ble based on patient's age to complete this topic MENINGOCOCCAL VACCINES (ACWY) Aged Out No longer eligible based on patient's age to complete this topic MENINGOCOCCAL VACCINES (B) Aged Out N o longer eligible based on patient's age to complete this topic Medical Devices Not on file Procedures Procedure Name Priority Date/Time Associated Diagnosis Comments LIVER FIBROSIS TEST Routine 10/11/2024 1 0:43 AM EST Screening for unspecified condition COMPREHENSIVE METABOLIC PANEL Routine 10/11/2024 10:43 AM EST Screening for unspecified condition ENDOSCOPY, COLON 05/25/2020 12:5 2 PM EDT from Last 3 Months or Most Recently Relevant to Health Maintenance Results * Liver fibrosis test (10/11/2024 10:43 AM EST) Fibrosis score 0.31 [facility] Interpretation (Fibrosis) SEE NOTE [facility]/ [facility] Comment: (NOTE) minimal fibrosis Fibro Test Score (f) Metavir Score f>=0 and f<=0.21 : F0 (no [...] HCV Fibrosis Grade F1 Q [facility]/ [facility] NECROINFLAMM SCORE 0.07 Q [facility]/ [facility] NECROINFLAMM GRADE A0 Q [facility]/ [facility] NECROINFLAMM INTERP SEE NOTE [facility] Proximetry/ [facility] Comment: (NOTE) no activity ActiTest Score (a) Metavir Score a>=0 and a<=0.17 : A0 (no activity) a>0.17 and a<=0.29 : A0-A1 (no activity) a>0.29 and a<=0.36 : A1 (minimal activity) a>0.36 and a<=0.52 : A1-A2 (minimal activity) a>0.52 and a<=0.60 : A2 (significant activity) a>0.60 and a<=0.62 : A2-A3 (significant activity) a>0.62 and a<=1.00 : A3 (severe activity) A2 Macroglobulin 211 106 - 279 mg/dL [facility] Haptoglobin 95 43 - 212 mg/dL [facility] Apolipoprotein A1 147 94 - 176 mg/dL [facility] TOTAL BILIRUBIN 0.6 0.2 - 1.2 mg/dL [facility] GGT 24 3 - 95 U/L [facility] ALT 18 9 - 46 U/L [facility] Specimen/Product ID [id number] [facility] Comments (Chemistry) SEE NOTE [facility] Comment: (NOTE) The reliability of results is dependent on compliance with the preanalytical and analytical conditions recommended by [employer]. The tests have to be deferred for: [...] The performance characteristics have been determined by [employer] [facility]. It has not been cleared or approved by the U.S. Food and Drug Administration. Performance characteristics refer to the analytical performance of the test. [employer], the associated logo, [employer] and all associated [employer] rivers are the registered trademarks of [employer]. All third green party rivers - (R) and (TM) - are the property of their respective owners. (C) 1734-6454 [employer]. All rights reserved. Blood 10/11/2024 10:4 3 AM EST 10/11/2024 10:47 AM EST us My[facility] LAB BLOOD ORDERABLES Final Result [facility] [address] [place] [address], [facility] [phone] * (ABNORMAL) Comprehensive metabolic panel (10/11/2024 10:43 AM EST) SODIUM 137 133 - 146 mmol/L [facility] POTASSIUM 4.5 3.3 - 5.1 mmol/L [facility] CHLORIDE 102 96 - 108 mmol/L [facility] CO2 23 21 - 35 mmol/L [facility] BUN 21(H) 6 - 19 mg/dL [facility] CREATININE 1.00 0.5 - 1.5 mg/dL [facility] GLUCOSE 114(H) 70 - 99 mg/dL [facility] ALBUMIN 4.4 3.9 - 4.8 g/dL [facility] TOTAL PROTEIN 7.7 6.5 - 8.0 g/dL [facility] CALCIUM 9.9 8.4 - 10.3 mg/dL [facility] ALKALINE PHOSPHATASE 135(H) 39 - 117 U/L [facility] TOTAL BILIRUBIN 0.4 0.0 - 1.2 mg/dL [facility] AST 18 0 - 37 U/L [facility] ALT 19 0 - 40 U/L [facility] GLOBULIN 3.3 1 - 4.8 g/dL [facility] EGFR 89 >59 mL/min/1.7 3m2 [facility] Comment:Estimated glomerular filtration rate calculated using the CKD-EPI refit equation. ANION GAP 17 10 - 20 mmol/L [facility] Blood 10/11/2024 10:4 3 AM EST 10/11/2024 10:47 AM EST us [facility] BLOOD ORDERABLES Final Result [facility] [address] [place] [address] * ENDOSCOPY, COLON (05/25/2020 12:52 PM EDT) Narrative Transcriptions Ren Cagle MD - 05/25/2020 12:52 PM EDT Patient Name: Hugo Hollins Attending MD:: REN CAGLE MD Procedure Date: 05/25/2020 12:52 PM Date of : 1970 Age: 50 Admit Type: Outpatient Gender: Male Room: [place] [address] Referring MD: DANY RONDON Exam Type: Colonoscopy [...] 12:52 PM Procedure Code(s): --- Professional --- 88279, Colonoscopy, flexible; diagnostic, including collection of specimen(s) by brushing or washing, when performed (separateprocedure) --- Technical --- 70540, Colonoscopy, flexible; diagnostic, including collection of specimen(s) by brushing or washing, when performed (separateprocedure) Diagnosis Code(s): --- Professional --- Z12.11, Encounter for screening for malignantneoplasm of colon --- Technical --- Z12.11, Encounter for screening for malignantneoplasm of colon CPT copyright 2018 [employer]. All rights reserved. The codes documented in this report are preliminary and upon clinical coder reviewmay be revised to meet current compliance requirements. Procedure Date: 05/25/2020 12:52:[address] [place] [address] Dany Rondon MD GI PROCEDURE ORDERABLES F inal Result from Last 3 Months or Most Recently Relevant to Health Maintenance Insurance [facility] [place] [id number] [facility] [place] [facility] [address] [address] [facility] [place] [address] [facility] [place] [address] [facility] [place] [address] [facility] [place] [address] [facility] Care Teams Straightedge Worker Relationship Specialty Start Date End Date Dany Rondon MD [address] [place] [id number] PCP - General Internal Medicine 06/21/18 Additional Source Comments The information contained in this document represents components of the legal health record. It is not the complete legal health record.[facility]
== END 2025-05-22 09:48 | disposition home or self-care (01) ==
LOC: HO.BBR 09:47
PROVIDERS: PCP Internal Medicine; Visit Provider Internal Medicine Gastroenterology
DX: Z13.89 Encounter for screening for other disorder (principal)